=== PATIENT | female | born 1965 | race Caucasian/White ===

== ENCOUNTER → 2021-10-20 | Day surgery (SDC) | payer BC ==
[~2021-10-20] MED LIST: AMLODIPINE BESYL5 MG PO; CELECOXIB100 MG PO; CYMBALTA20 MG PO; DUPIXENT300 MG/2 M IN; FENTANYL CITRATE/PF 100MCG/2 ML INJ ONE; FOLIC ACID PO; GABAPENTIN300 MG PO; MIDAZOLAM HCL 2 MG/2 ML VIAL ONE; ORENCIA125 MG/1 M INJ; PREDNISONE10 MG PO; PROPOFOL IV EMULSION 10 MG/ML 20 ML VIAL ONE; SULFASALAZINE500 MG PO; TIZANIDINE HCL4 MG PO
[2021-10-20 14:15] VITALS: BP 134/90
== END | disposition home or self-care (01) ==
LOC: ENDO 11:41
PROVIDERS: ATTEND Internal Medicine Gastroenterology
DX: K20.90 Esophagitis, unspecified without bleeding (principal); K29.50 Unspecified chronic gastritis without bleeding; K25.9 Gastric ulcer, unspecified as acute or chronic, without hemorrhage or perforation; K44.9 Diaphragmatic hernia without obstruction or gangrene; K31.4 Gastric diverticulum; Z71.3 Dietary counseling and surveillance; I10 Essential (primary) hypertension; M06.9 Rheumatoid arthritis, unspecified; L40.9 Psoriasis, unspecified; Z01.810 Encounter for preprocedural cardiovascular examination; Z01.812 Encounter for preprocedural laboratory examination; Z20.822 Contact with and (suspected) exposure to COVID-19; Z79.899 Other long term (current) drug therapy; Z68.31 Body mass index [BMI] 31.0-31.9, adult
CPT/HCPCS: 43239; 43248; 93005; C9113; J2250; J2704; J3010; U0002; 43450

== ENCOUNTER → 2021-12-08 | Outpatient (CLI) | payer BC ==
[~2021-12-08] MED LIST changes: +AUGMENTIN 500-1 EACH PO; +BENZONATATE200 MG PO; +CELEBREX100 MG PO; +CICLOPIROX 8%34.6 ML TOP; +CLOBETASOL 0.05% TOP; +CYCLOBENZAPRINE10 MG PO; +DIFLUCAN100 MG PO; +DULOXETINE HCL20 MG PO; +DUPIXENT300 MG/2 M IM; +ELIQUIS5 MG PO; -FENTANYL CITRATE/PF 100MCG/2 ML INJ ONE; +FOLIC ACID0.4 MG PO; +IPRAT-ALBUT 0.5-3 ML IH; +LOPRESSOR25 MG PO; -MIDAZOLAM HCL 2 MG/2 ML VIAL ONE; +NEURONTIN300 MG PO; +ONDANSETRON ODT4 MG PO; +ORENCIA125 MG/1 M IM; +PROAIR HFA INH8.5 GM INH; -PROPOFOL IV EMULSION 10 MG/ML 20 ML VIAL ONE; +TACROLIMUS 0.1% TOP; +TRIAMCINOLONE A15 G4 TP; +WELLBUTRIN SR100 MG PO
== END ==
LOC: RAD 15:19
PROVIDERS: ATTEND Internal Medicine Cardiovascular Disease
DX: R60.9 Edema, unspecified (principal)
CPT/HCPCS: 93970

== ENCOUNTER 2022-03-04 16:01 | Inpatient (IN) | payer BC ==
[~2022-03-04] VITALS: Ht 152.4 cm; Wt 89.0 kg
[2022-03-04] MEDS ORDERED: SODIUM CHLORIDE 0.9% 1000ML 1,000 ML IV ONE (17:00)
[2022-03-04 17:19] LABS: BASOPHILS % 0.2 % (0.0-1.0); HEMATOCRIT 37.9 % (34.2-44.1); LYMPHOCYTES # (AUTO) 2.1 (1.0-3.2); LYMPHOCYTES % 13.8 % (18.0-39.1); MEAN CORPUSCULAR HEMOGLOBIN 30.3 pg (28-32); MEAN CORPUSCULAR HGB CONC 31.7 g/dL (31-35); MEAN CORPUSCULAR VOLUME 95.7 fL (81-99); MONOCYTES # (AUTO) 0.6 (0.2-0.8); MONOCYTES % 4.2 % (4.4-11.3); NEUTROPHILS # (AUTO) 12.4 (2.1-6.9); PLATELET COUNT 463 x10e3/uL (140-360); RED BLOOD COUNT 3.96 x10e6/uL (3.6-5.1); RED CELL DISTRIBUTION WIDTH 17.1 % (11.7-14.4)
[2022-03-04 17:38] LABS: ALBUMIN/GLOBULIN RATIO 0.8 (0.8-2.0); CALCIUM 8.7 mg/dL (8.4-10.2); CREATININE, SERUM 1.01 mg/dL (0.57-1.11)
[2022-03-04] MEDS: METHYLPREDNISOLONE SOD SUCC 125 MG/2ML VIAL IV SCH (17:59)
[2022-03-04] MEDS: ALBUTEROL/IPRATROPIUM 3 ML NEB NEB SCH ×2 (18:15→22:50)
[2022-03-04] MEDS ORDERED: ONDANSETRON HCL INJ 2MG/ML 2ML 2 MG/ML VIAL IV PRN (19:00)
[2022-03-04] MEDS ORDERED: ALBUTEROL/IPRATROPIUM 3 ML NEB NEB SCH (19:00)
[2022-03-04] MEDS ORDERED: SODIUM CHLORIDE FLUSH 10 ML SYR INJ PRN (19:00)
[2022-03-04] MEDS ORDERED: HYDROCODONE/APAP 5MG-325MG TAB PO PRN (19:00)
[2022-03-05] MEDS: HYDROCODONE/APAP 10MG-325MG TAB PO PRN ×5 (00:33→21:45)
[2022-03-05] MEDS: ALBUTEROL/IPRATROPIUM 3 ML NEB NEB SCH ×6 (03:15→23:00)
[2022-03-05] MEDS: METHYLPREDNISOLONE SOD SUCC 125 MG/2ML VIAL IV SCH (06:09)
[2022-03-05] MEDS ORDERED: ACETAMINOPHEN 325 MG TAB PO PRN (08:15)
[2022-03-05] MEDS ORDERED: ONDANSETRON HCL INJ 2MG/ML 2ML 2 MG/ML VIAL IV PRN (08:15)
[2022-03-05] MEDS ORDERED: BENZONATATE 100 MG CAP PO PRN (08:15)
[2022-03-05] MEDS: SULFASALAZINE 500 MG TAB PO SCH ×2 (10:48→16:17)
[2022-03-05] MEDS: DULOXETINE HCL 20 MG DELAYED RELEASE PO SCH ×2 (10:48→16:18)
[2022-03-05] MEDS: APIXABAN 5 MG TABLET PO SCH ×2 (10:48→16:17)
[2022-03-05] MEDS: FAMOTIDINE 20 MG/2 ML VIAL IV SCH ×2 (10:48→16:17)
[2022-03-05] MEDS: METOPROLOL TARTRATE 25 MG TAB PO SCH ×2 (10:49→16:16)
[2022-03-05] MEDS: CYCLOBENZAPRINE HCL 10 MG TAB PO SCH ×2 (10:49→16:15)
[2022-03-05] MEDS: GABAPENTIN 300 MG CAP PO SCH ×3 (10:50→21:45)
[2022-03-05] MEDS: BUPROPION HCL 100 MG TAB PO SCH (10:51)
[2022-03-05 12:15] VITALS: BP 132/84
[2022-03-05 12:57] VITALS: BP 137/84
[2022-03-05 13:03] VITALS: BP 137/84
[2022-03-05] MEDS: METHYLPREDNISOLONE SOD SUCC 40 MG/ML VIAL 1ML IV SCH ×2 (14:25→21:45)
[2022-03-05 16:01] VITALS: BP 124/72
[2022-03-05 20:00] VITALS: BP 140/78
[2022-03-05] MEDS: IPRATROPIUM/ALBUTEROL SULFATE 4 GM INH INH SCH (20:20)
[2022-03-05 21:30] VITALS: BP 140/78
[2022-03-06] VITALS (8 sets, daily range): BP systolic 108–146; BP diastolic 61–88
[2022-03-06] MEDS: HYDROCODONE/APAP 10MG-325MG TAB PO PRN ×5 (02:36→22:00)
[2022-03-06] MEDS: ALBUTEROL/IPRATROPIUM 3 ML NEB NEB SCH ×6 (03:00→23:00)
[2022-03-06] MEDS: IPRATROPIUM/ALBUTEROL SULFATE 4 GM INH INH SCH ×6 (04:05→23:55)
[2022-03-06] MEDS: METHYLPREDNISOLONE SOD SUCC 40 MG/ML VIAL 1ML IV SCH ×3 (05:37→21:30)
[2022-03-06 06:46] LABS: ANION GAP 15.5 mmol/L (8-16); CALCIUM 7.7 mg/dL (8.4-10.2); CREATININE, SERUM 0.83 mg/dL (0.57-1.11); POTASSIUM 3.5 mmol/L (3.5-5.1)
[2022-03-06] MEDS: GABAPENTIN 300 MG CAP PO SCH ×3 (08:43→21:30)
[2022-03-06] MEDS: SULFASALAZINE 500 MG TAB PO SCH ×2 (08:43→17:10)
[2022-03-06] MEDS: METOPROLOL TARTRATE 25 MG TAB PO SCH ×2 (08:44→17:10)
[2022-03-06] MEDS: CYCLOBENZAPRINE HCL 10 MG TAB PO SCH ×2 (08:45→17:10)
[2022-03-06] MEDS: APIXABAN 5 MG TABLET PO SCH ×2 (08:45→17:11)
[2022-03-06] MEDS: DULOXETINE HCL 20 MG DELAYED RELEASE PO SCH ×2 (08:45→17:00)
[2022-03-06] MEDS: FAMOTIDINE 20 MG/2 ML VIAL IV SCH ×2 (08:46→17:00)
[2022-03-06] MEDS: BUPROPION HCL 100 MG TAB PO SCH (08:46)
[2022-03-07] VITALS (8 sets, daily range): BP systolic 130–148; BP diastolic 78–87
[2022-03-07] MEDS: ALBUTEROL/IPRATROPIUM 3 ML NEB NEB SCH ×6 (03:00→23:50)
[2022-03-07] MEDS: IPRATROPIUM/ALBUTEROL SULFATE 4 GM INH INH SCH ×6 (03:35→23:50)
[2022-03-07] MEDS: METHYLPREDNISOLONE SOD SUCC 40 MG/ML VIAL 1ML IV SCH ×3 (05:22→21:36)
[2022-03-07] MEDS: HYDROCODONE/APAP 10MG-325MG TAB PO PRN ×5 (05:30→23:00)
[2022-03-07] MEDS: CYCLOBENZAPRINE HCL 10 MG TAB PO SCH ×2 (08:54→16:24)
[2022-03-07] MEDS: SULFASALAZINE 500 MG TAB PO SCH ×2 (08:54→16:23)
[2022-03-07] MEDS: DULOXETINE HCL 20 MG DELAYED RELEASE PO SCH ×2 (08:54→16:25)
[2022-03-07] MEDS: GABAPENTIN 300 MG CAP PO SCH ×3 (08:55→21:36)
[2022-03-07] MEDS: APIXABAN 5 MG TABLET PO SCH ×2 (08:55→16:24)
[2022-03-07] MEDS: METOPROLOL TARTRATE 25 MG TAB PO SCH ×2 (08:55→16:24)
[2022-03-07] MEDS: BUPROPION HCL 100 MG TAB PO SCH (09:00)
[2022-03-07] MEDS: FAMOTIDINE 20 MG/2 ML VIAL IV SCH ×2 (09:00→16:24)
[2022-03-07] MEDS: NYSTATIN SUSPENSION 5 ML UDC PO SCH ×2 (16:23→21:36)
[2022-03-08] VITALS (8 sets, daily range): BP systolic 144–164; BP diastolic 84–96
[2022-03-08] MEDS: IPRATROPIUM/ALBUTEROL SULFATE 4 GM INH INH SCH ×6 (00:25→19:55)
[2022-03-08] MEDS: ALBUTEROL/IPRATROPIUM 3 ML NEB NEB SCH ×6 (03:00→23:00)
[2022-03-08] MEDS: HYDROCODONE/APAP 10MG-325MG TAB PO PRN ×4 (04:30→21:30)
[2022-03-08] MEDS: NYSTATIN SUSPENSION 5 ML UDC PO SCH ×3 (05:56→21:10)
[2022-03-08] MEDS: METHYLPREDNISOLONE SOD SUCC 40 MG/ML VIAL 1ML IV SCH (05:56)
[2022-03-08 06:55] LABS: BASOPHILS % 0.2 % (0.0-1.0); HEMATOCRIT 35.4 % (34.2-44.1); HEMOGLOBIN 10.9 g/dL (12.0-16.0); LYMPHOCYTES # (AUTO) 1.3 (1.0-3.2); LYMPHOCYTES % 11.3 % (18.0-39.1); MEAN CORPUSCULAR HEMOGLOBIN 30.3 pg (28-32); MEAN CORPUSCULAR HGB CONC 30.8 g/dL (31-35); MEAN CORPUSCULAR VOLUME 98.3 fL (81-99); MONOCYTES # (AUTO) 0.4 (0.2-0.8); MONOCYTES % 3.4 % (4.4-11.3); NEUTROPHILS # (AUTO) 9.6 (2.1-6.9); NEUTROPHILS % 83.5 % (38.7-80.0); PLATELET COUNT 307 x10e3/uL (140-360)
[2022-03-08 07:12] LABS: CALCIUM 8.6 mg/dL (8.4-10.2); CREATININE, SERUM 0.86 mg/dL (0.57-1.11)
[2022-03-08] MEDS: GABAPENTIN 300 MG CAP PO SCH ×3 (08:51→21:10)
[2022-03-08] MEDS: DULOXETINE HCL 20 MG DELAYED RELEASE PO SCH ×2 (08:51→16:59)
[2022-03-08] MEDS: SULFASALAZINE 500 MG TAB PO SCH ×2 (08:51→16:59)
[2022-03-08] MEDS: METOPROLOL TARTRATE 25 MG TAB PO SCH ×2 (08:52→17:00)
[2022-03-08] MEDS: BUPROPION HCL 100 MG TAB PO SCH (08:52)
[2022-03-08] MEDS: CYCLOBENZAPRINE HCL 10 MG TAB PO SCH ×2 (08:52→16:59)
[2022-03-08] MEDS: APIXABAN 5 MG TABLET PO SCH ×2 (08:52→16:59)
[2022-03-08] MEDS: FAMOTIDINE 20 MG/2 ML VIAL IV SCH ×2 (08:53→17:00)
[2022-03-08] MEDS ORDERED: GUAIFENESIN/CODEINE 5 ML LIQD PO PRN (09:15)
[2022-03-08] MEDS ORDERED: SUMATRIPTAN SUCCINATE 25 MG TAB PO ONE (10:00)
[2022-03-08] MEDS ORDERED: FLUCONAZOLE 100 MG TAB PO ONE (10:00)
[2022-03-08] MEDS: SUMATRIPTAN SUCCINATE 25 MG TAB PO PRN ×2 (10:13→23:29)
[2022-03-08] MEDS: BENZONATATE 100 MG CAP PO SCH ×2 (10:33→17:00)
[2022-03-08] MEDS: DEXAMETHASONE 4 MG TAB PO SCH ×2 (10:33→17:03)
[2022-03-09] VITALS: BP 149/90
[2022-03-09] MEDS: BENZONATATE 100 MG CAP PO SCH ×2 (01:08→09:19)
[2022-03-09] MEDS: ALBUTEROL/IPRATROPIUM 3 ML NEB NEB SCH ×2 (03:00→07:00)
[2022-03-09 04:00] VITALS: BP 144/84
[2022-03-09] MEDS: IPRATROPIUM/ALBUTEROL SULFATE 4 GM INH INH SCH ×2 (04:15→07:25)
[2022-03-09] MEDS: HYDROCODONE/APAP 10MG-325MG TAB PO PRN (06:15)
[2022-03-09] MEDS: NYSTATIN SUSPENSION 5 ML UDC PO SCH (06:15)
[2022-03-09 08:21] VITALS: BP 136/91
[2022-03-09] MEDS ORDERED: FLUCONAZOLE 100 MG TAB PO SCH (09:00)
[2022-03-09] MEDS: GABAPENTIN 300 MG CAP PO SCH (09:19)
[2022-03-09] MEDS: DULOXETINE HCL 20 MG DELAYED RELEASE PO SCH (09:19)
[2022-03-09] MEDS: SULFASALAZINE 500 MG TAB PO SCH (09:20)
[2022-03-09] MEDS: METOPROLOL TARTRATE 25 MG TAB PO SCH (09:20)
[2022-03-09] MEDS: CYCLOBENZAPRINE HCL 10 MG TAB PO SCH (09:20)
[2022-03-09] MEDS: APIXABAN 5 MG TABLET PO SCH (09:21)
[2022-03-09] MEDS: BUPROPION HCL 100 MG TAB PO SCH (09:21)
[2022-03-09] MEDS: DEXAMETHASONE 4 MG TAB PO SCH (09:21)
[2022-03-09] MEDS: FAMOTIDINE 20 MG/2 ML VIAL IV SCH (09:21)
[2022-03-09 09:34] VITALS: BP 136/91
[2022-03-09] MEDS: SUMATRIPTAN SUCCINATE 25 MG TAB PO PRN (10:42)
== END 2022-03-09 11:30 | disposition home or self-care (01) | DRG 177 ==
LOC: ER 17:00 → ERHOLD 18:52 → MED/SURG2 03-05 12:32
PROVIDERS: ADMIT Internal Medicine; ATTEND Internal Medicine
PROC: 8E0ZXY6 Isolation (ICD-10-PCS; principal; 2022-03-04)
DX: U07.1 COVID-19 (principal); J18.9 Pneumonia, unspecified organism; D84.821 Immunodeficiency due to drugs; J06.9 Acute upper respiratory infection, unspecified; B37.9 Candidiasis, unspecified; G43.909 Migraine, unspecified, not intractable, without status migrainosus; M06.9 Rheumatoid arthritis, unspecified; M79.7 Fibromyalgia; E66.9 Obesity, unspecified; Z68.38 Body mass index [BMI] 38.0-38.9, adult; J20.9 Acute bronchitis, unspecified; R09.02 Hypoxemia
CPT/HCPCS: 0223U; 36415; 71045; 80048; 80053; 82552; 84484; 85025; 93005; 94640; 94664; 94799; 99285; J0456; J0696; J2405; J2920; J2930; J7030; J7050

== ENCOUNTER 2022-03-16 10:37 | Inpatient (IN) | payer BC ==
[2022-03-16] VITALS (17 sets, daily range): BP systolic 103–149; BP diastolic 62–102
[~2022-03-16] VITALS: Ht 167.6 cm; Wt 88.7 kg
[2022-03-16] MEDS ORDERED: ETOMIDATE 2 MG/ML 10 ML INJ IV ONE (12:43)
[2022-03-16] MEDS ORDERED: SUCCINYLCHOLINE CHLORIDE 20 MG/ML 10ML VIAL ONE (12:43)
[2022-03-16] MEDS ORDERED: ALBUTEROL/IPRATROPIUM 3 ML NEB NEB PRN (13:45)
[2022-03-16] MEDS ORDERED: POTASSIUM CHLO20 ME1 PO (13:48)
[2022-03-16] MEDS ORDERED: HYDROCODON-ACE1 EA11 PO (13:48)
[2022-03-16] MEDS ORDERED: SUCRALFATE1 GM PO (13:48)
[2022-03-16] MEDS ORDERED: PROTONIX20 MG PO (13:48)
[2022-03-16] MEDS ORDERED: [UNRECOGNIZED DRUG - OTHER] PO (13:48)
[2022-03-16] MEDS: HYDROCODONE/APAP 5MG-325MG TAB PO PRN (14:31)
[2022-03-16 14:52] LABS: ABG HCO3 33 mmol/L (22-26); ABG PCO2 41 mmHg (35-45); ABG PH 7.52 (7.35-7.45); ABG PO2 63 mmHg (80-105); ABG TCO2 34
[2022-03-16] MEDS: Morphine 4mg INJECTION 4 MG/ML INJ IV PRN ×2 (16:50→22:21)
[2022-03-16] MEDS: SUCRALFATE 1 GM TAB PO SCH ×2 (16:51→21:08)
[2022-03-16] MEDS ORDERED: DULOXETINE HCL 20 MG DELAYED RELEASE PO SCH (17:00)
[2022-03-16 17:35] LABS: ANION GAP 17.7 mmol/L (8-16); CREATININE, SERUM 0.84 mg/dL (0.57-1.11); POTASSIUM 3.7 mmol/L (3.5-5.1)
[2022-03-16] MEDS: APIXABAN 5 MG TABLET PO SCH (18:16)
[2022-03-16] MEDS: CELECOXIB 200 MG CAP PO SCH (18:16)
[2022-03-16] MEDS: GABAPENTIN 300 MG CAP PO SCH (21:08)
[2022-03-16] MEDS: METHYLPREDNISOLONE SOD SUCC 40 MG/ML VIAL 1ML IV SCH (21:08)
[2022-03-16] MEDS: [UNRECOGNIZED DRUG - OTHER] PO SCH (21:09)
[2022-03-17] VITALS (17 sets, daily range): BP systolic 111–136; BP diastolic 69–93
[2022-03-17] MEDS: Morphine 4mg INJECTION 4 MG/ML INJ IV PRN ×3 (05:05→21:29)
[2022-03-17 07:23] LABS: BASOPHILS % 0.1 % (0.0-1.0); HEMOGLOBIN 10.2 g/dL (12.0-16.0); LYMPHOCYTES # (AUTO) 1.7 (1.0-3.2); LYMPHOCYTES % 9.7 % (18.0-39.1); MEAN CORPUSCULAR HEMOGLOBIN 29.7 pg (28-32); MEAN CORPUSCULAR HGB CONC 30.9 g/dL (31-35); MEAN CORPUSCULAR VOLUME 96.2 fL (81-99); MONOCYTES # (AUTO) 0.4 (0.2-0.8); MONOCYTES % 2.1 % (4.4-11.3); NEUTROPHILS # (AUTO) 14.8 (2.1-6.9); PLATELET COUNT 527 x10e3/uL (140-360); RED BLOOD COUNT 3.43 x10e6/uL (3.6-5.1); RED CELL DISTRIBUTION WIDTH 17.7 % (11.7-14.4)
[2022-03-17 07:41] LABS: ALBUMIN 2.2 g/dL (3.5-5.0); ALBUMIN/GLOBULIN RATIO 0.5 (0.8-2.0); ANION GAP 17.9 mmol/L (8-16); CALCIUM 8.9 mg/dL (8.4-10.2); CREATININE, SERUM 0.69 mg/dL (0.57-1.11); POTASSIUM 3.9 mmol/L (3.5-5.1)
[2022-03-17] MEDS: PANTOPRAZOLE SOD 40 MG TABEC PO SCH (07:41)
[2022-03-17] MEDS: SUCRALFATE 1 GM TAB PO SCH ×4 (07:42→21:17)
[2022-03-17] MEDS: BENZONATATE 100 MG CAP PO PRN ×2 (07:42→21:13)
[2022-03-17] MEDS: CELECOXIB 200 MG CAP PO SCH ×2 (07:42→16:07)
[2022-03-17] MEDS: ALBUTEROL SULFATE HFA 8GM INHALATION AEROSOL INH PRN ×4 (07:55→19:30)
[2022-03-17] MEDS: METHYLPREDNISOLONE SOD SUCC 40 MG/ML VIAL 1ML IV SCH ×2 (09:00→21:13)
[2022-03-17] MEDS: DULOXETINE HCL 20 MG DELAYED RELEASE PO SCH (09:02)
[2022-03-17] MEDS: APIXABAN 5 MG TABLET PO SCH ×2 (09:02→16:08)
[2022-03-17] MEDS: FOLIC ACID 1 MG TAB PO SCH (09:02)
[2022-03-17] MEDS: GABAPENTIN 300 MG CAP PO SCH ×3 (09:02→21:13)
[2022-03-17] MEDS: POTASSIUM CHLORIDE 10MEQ EA PO SCH (09:02)
[2022-03-17] MEDS: BUPROPION HCL 100 MG PO SCH (09:03)
[2022-03-17] MEDS: [UNRECOGNIZED DRUG - OTHER] PO SCH ×3 (09:03→21:15)
[2022-03-17] MEDS: CYCLOBENZAPRINE HCL 10 MG TAB PO PRN (21:16)
[2022-03-18] VITALS (25 sets, daily range): BP systolic 118–143; BP diastolic 72–105
[2022-03-18] MEDS: BENZONATATE 100 MG CAP PO PRN ×2 (03:45→20:01)
[2022-03-18] MEDS: HYDROCODONE/APAP 5MG-325MG TAB PO PRN (03:45)
[2022-03-18 06:40] LABS: BASOPHILS % 0.1 % (0.0-1.0); HEMATOCRIT 30.4 % (34.2-44.1); HEMOGLOBIN 9.4 g/dL (12.0-16.0); LYMPHOCYTES # (AUTO) 1.2 (1.0-3.2); LYMPHOCYTES % 8.3 % (18.0-39.1); MEAN CORPUSCULAR HGB CONC 30.9 g/dL (31-35); MEAN CORPUSCULAR VOLUME 97.1 fL (81-99); MONOCYTES # (AUTO) 0.2 (0.2-0.8); MONOCYTES % 1.6 % (4.4-11.3); NEUTROPHILS # (AUTO) 13.4 (2.1-6.9); NEUTROPHILS % 88.9 % (38.7-80.0); PLATELET COUNT 519 x10e3/uL (140-360); RED BLOOD COUNT 3.13 x10e6/uL (3.6-5.1); RED CELL DISTRIBUTION WIDTH 17.6 % (11.7-14.4)
[2022-03-18 07:02] LABS: ALBUMIN/GLOBULIN RATIO 0.6 (0.8-2.0); CALCIUM 8.9 mg/dL (8.4-10.2); CREATININE, SERUM 0.59 mg/dL (0.57-1.11)
[2022-03-18] MEDS: DULOXETINE HCL 20 MG DELAYED RELEASE PO SCH (08:23)
[2022-03-18] MEDS: PANTOPRAZOLE SOD 40 MG TABEC PO SCH (08:23)
[2022-03-18] MEDS: METOPROLOL SUCCINATE 25 MG TAB XL PO SCH (08:24)
[2022-03-18] MEDS: METHYLPREDNISOLONE SOD SUCC 40 MG/ML VIAL 1ML IV SCH ×2 (08:24→20:01)
[2022-03-18] MEDS: GABAPENTIN 300 MG CAP PO SCH ×3 (08:25→20:01)
[2022-03-18] MEDS: CELECOXIB 200 MG CAP PO SCH ×2 (08:25→16:39)
[2022-03-18] MEDS: APIXABAN 5 MG TABLET PO SCH ×2 (08:25→16:40)
[2022-03-18] MEDS: FOLIC ACID 1 MG TAB PO SCH (08:25)
[2022-03-18] MEDS: SUCRALFATE 1 GM TAB PO SCH ×4 (08:25→20:01)
[2022-03-18] MEDS: Morphine 4mg INJECTION 4 MG/ML INJ IV PRN ×3 (08:27→19:57)
[2022-03-18] MEDS: POTASSIUM CHLORIDE 10MEQ EA PO SCH (08:27)
[2022-03-18] MEDS: [UNRECOGNIZED DRUG - OTHER] PO SCH ×3 (08:28→20:01)
[2022-03-18] MEDS: BUPROPION HCL 100 MG PO SCH (08:28)
[2022-03-18] MEDS ORDERED: BUPROPION HCL 100 MG TAB PO SCH (09:00)
[2022-03-18] MEDS ORDERED: BARICITINIB 2 MG TABLET PO SCH (14:00)
[2022-03-18] MEDS: ALBUTEROL SULFATE HFA 8GM INHALATION AEROSOL INH PRN ×2 (16:15→19:29)
[2022-03-18] MEDS: CYCLOBENZAPRINE HCL 10 MG TAB PO PRN (19:58)
[2022-03-18] MEDS ORDERED: ALTEPLASE RECOMBINANT 2 MG/2 ML VIAL IV PRN (22:00)
[2022-03-19] VITALS (26 sets, daily range): BP systolic 94–163; BP diastolic 71–106
[2022-03-19] MEDS: Morphine 4mg INJECTION 4 MG/ML INJ IV PRN ×2 (00:44→23:04)
[2022-03-19 06:57] LABS: ANION GAP 12.5 mmol/L (8-16); CALCIUM 9.2 mg/dL (8.4-10.2); CREATININE, SERUM 0.69 mg/dL (0.57-1.11); POTASSIUM 4.5 mmol/L (3.5-5.1)
[2022-03-19] MEDS ORDERED: SODIUM CHLORIDE 0.45% 1,000 ML IV ONE (08:15)
[2022-03-19 08:41] LABS: BASOPHILS % 0.1 % (0.0-1.0); HEMATOCRIT 30.2 % (34.2-44.1); HEMOGLOBIN 9.2 g/dL (12.0-16.0); LYMPHOCYTES # (AUTO) 2.1 (1.0-3.2); LYMPHOCYTES % 14.2 % (18.0-39.1); MEAN CORPUSCULAR HGB CONC 30.5 g/dL (31-35); MEAN CORPUSCULAR VOLUME 98.4 fL (81-99); MONOCYTES # (AUTO) 0.3 (0.2-0.8); MONOCYTES % 2.2 % (4.4-11.3); NEUTROPHILS # (AUTO) 12.2 (2.1-6.9); NEUTROPHILS % 82.3 % (38.7-80.0); PLATELET COUNT 527 x10e3/uL (140-360); RED BLOOD COUNT 3.07 x10e6/uL (3.6-5.1); RED CELL DISTRIBUTION WIDTH 17.7 % (11.7-14.4)
[2022-03-19] MEDS: METHYLPREDNISOLONE SOD SUCC 40 MG/ML VIAL 1ML IV SCH ×3 (09:05→21:21)
[2022-03-19] MEDS: APIXABAN 5 MG TABLET PO SCH ×2 (09:05→17:58)
[2022-03-19] MEDS: BUPROPION HCL 100 MG PO SCH (09:06)
[2022-03-19] MEDS: METOPROLOL SUCCINATE 25 MG TAB XL PO SCH (09:10)
[2022-03-19] MEDS: DULOXETINE HCL 20 MG DELAYED RELEASE PO SCH (09:11)
[2022-03-19] MEDS: CELECOXIB 200 MG CAP PO SCH ×2 (09:25→17:58)
[2022-03-19] MEDS: [UNRECOGNIZED DRUG - OTHER] PO SCH ×3 (09:25→21:21)
[2022-03-19] MEDS ORDERED: DEXAMETHASONE 4 MG TAB PO SCH (12:00)
[2022-03-19] MEDS: ALBUTEROL SULFATE HFA 8GM INHALATION AEROSOL INH PRN (13:15)
[2022-03-19] MEDS: HYDROCODONE/APAP 7.5MG-325MG 1 EA TAB PO PRN ×2 (14:00→20:00)
[2022-03-20] VITALS (25 sets, daily range): BP systolic 110–166; BP diastolic 72–107
[2022-03-20] MEDS: BENZONATATE 100 MG CAP PO PRN ×2 (02:15→23:46)
[2022-03-20] MEDS: DEXMEDETOMIDINE 400MCG/NS100ML 100 ML IV PRN (03:29)
[2022-03-20] MEDS: HYDROCODONE/APAP 7.5MG-325MG 1 EA TAB PO PRN ×2 (05:15→23:46)
[2022-03-20 06:14] LABS: BASOPHILS % 0.1 % (0.0-1.0); EOSINOPHILS % 0.1 % (0.0-6.0); HEMATOCRIT 29.3 % (34.2-44.1); HEMOGLOBIN 8.9 g/dL (12.0-16.0); LYMPHOCYTES # (AUTO) 1.2 (1.0-3.2); LYMPHOCYTES % 8.3 % (18.0-39.1); MEAN CORPUSCULAR HEMOGLOBIN 29.4 pg (28-32); MEAN CORPUSCULAR HGB CONC 30.4 g/dL (31-35); MEAN CORPUSCULAR VOLUME 96.7 fL (81-99); MONOCYTES # (AUTO) 0.3 (0.2-0.8); MONOCYTES % 1.9 % (4.4-11.3); NEUTROPHILS % 88.6 % (38.7-80.0); PLATELET COUNT 498 x10e3/uL (140-360); RED BLOOD COUNT 3.03 x10e6/uL (3.6-5.1); RED CELL DISTRIBUTION WIDTH 16.9 % (11.7-14.4)
[2022-03-20 06:58] LABS: ALBUMIN 1.8 g/dL (3.5-5.0); ALBUMIN/GLOBULIN RATIO 0.4 (0.8-2.0); ANION GAP 13.4 mmol/L (8-16); CALCIUM 8.8 mg/dL (8.4-10.2); CREATININE, SERUM 0.57 mg/dL (0.57-1.11); POTASSIUM 4.4 mmol/L (3.5-5.1)
[2022-03-20] MEDS: CELECOXIB 200 MG CAP PO SCH ×2 (08:04→09:09)
[2022-03-20] MEDS: Morphine 4mg INJECTION 4 MG/ML INJ IV PRN ×3 (08:19→20:46)
[2022-03-20] MEDS: METOPROLOL SUCCINATE 25 MG TAB XL PO SCH (09:11)
[2022-03-20] MEDS: METHYLPREDNISOLONE SOD SUCC 40 MG/ML VIAL 1ML IV SCH ×2 (09:11→20:46)
[2022-03-20] MEDS: APIXABAN 5 MG TABLET PO SCH ×2 (09:11→17:43)
[2022-03-20] MEDS ORDERED: GUAIFENESIN/CODEINE 5 ML LIQD PO PRN (09:15)
[2022-03-20] MEDS: DULOXETINE HCL 20 MG DELAYED RELEASE PO SCH (09:16)
[2022-03-20] MEDS: [UNRECOGNIZED DRUG - OTHER] PO SCH ×3 (09:20→20:54)
[2022-03-20] MEDS: BUPROPION HCL 100 MG PO SCH (09:20)
[2022-03-20] MEDS: GUAIFENESIN/CODEINE 5 ML LIQD PO PRN ×2 (09:50→20:59)
[2022-03-20] MEDS: ALBUTEROL SULFATE HFA 8GM INHALATION AEROSOL INH PRN (11:05)
[2022-03-20] MEDS: OLMESARTAN 20 MG TAB PO SCH (14:44)
[2022-03-21] VITALS (27 sets, daily range): BP systolic 108–161; BP diastolic 63–103
[2022-03-21] MEDS: Morphine 4mg INJECTION 4 MG/ML INJ IV PRN ×3 (02:06→20:14)
[2022-03-21] MEDS: GUAIFENESIN/CODEINE 5 ML LIQD PO PRN ×3 (02:06→15:32)
[2022-03-21] MEDS: DEXMEDETOMIDINE 400MCG/NS100ML 100 ML IV PRN (03:30)
[2022-03-21 06:46] LABS: BASOPHILS % 0.1 % (0.0-1.0); HEMATOCRIT 30.9 % (34.2-44.1); HEMOGLOBIN 9.4 g/dL (12.0-16.0); LYMPHOCYTES # (AUTO) 0.9 (1.0-3.2); LYMPHOCYTES % 4.8 % (18.0-39.1); MEAN CORPUSCULAR HEMOGLOBIN 29.5 pg (28-32); MEAN CORPUSCULAR HGB CONC 30.4 g/dL (31-35); MEAN CORPUSCULAR VOLUME 96.9 fL (81-99); MONOCYTES # (AUTO) 0.3 (0.2-0.8); MONOCYTES % 1.7 % (4.4-11.3); NEUTROPHILS # (AUTO) 16.9 (2.1-6.9); NEUTROPHILS % 92.4 % (38.7-80.0); PLATELET COUNT 497 x10e3/uL (140-360); RED BLOOD COUNT 3.19 x10e6/uL (3.6-5.1); RED CELL DISTRIBUTION WIDTH 16.6 % (11.7-14.4)
[2022-03-21 07:22] LABS: ALBUMIN 1.9 g/dL (3.5-5.0); ALBUMIN/GLOBULIN RATIO 0.4 (0.8-2.0); ANION GAP 13.3 mmol/L (8-16); CALCIUM 9.3 mg/dL (8.4-10.2); CREATININE, SERUM 0.54 mg/dL (0.57-1.11); POTASSIUM 4.3 mmol/L (3.5-5.1)
[2022-03-21 07:55] LABS: LYMPHOCYTES % (MANUAL) 3 % (19-48); NEUTROPHILS % (MANUAL) 97 % (40-74); NUCLEATED RED BLOOD CELLS 1
[2022-03-21 07:57] LABS: POIKILOCYTOSIS SLIGHT
[2022-03-21 07:58] LABS: ANISOCYTOSIS SLIG; POLYCHROMASIA FEW; TARGET CELLS FEW
[2022-03-21 07:59] LABS: PLATELET ESTIMATE ADEQUATE; PLATELET MORPHOLOGY COMMENT FEW LARGE; SMUDGE CELLS FEW
[2022-03-21] MEDS: CELECOXIB 200 MG CAP PO SCH ×2 (08:07→17:09)
[2022-03-21] MEDS: METHYLPREDNISOLONE SOD SUCC 40 MG/ML VIAL 1ML IV SCH ×2 (08:57→21:12)
[2022-03-21] MEDS: OLMESARTAN 20 MG TAB PO SCH (08:58)
[2022-03-21] MEDS: APIXABAN 5 MG TABLET PO SCH ×2 (08:58→17:09)
[2022-03-21] MEDS: DULOXETINE HCL 20 MG DELAYED RELEASE PO SCH (08:58)
[2022-03-21] MEDS ORDERED: HYDROCHLOROTHIAZIDE 25 MG TAB PO SCH (09:00)
[2022-03-21] MEDS: BUPROPION HCL 100 MG PO SCH (09:01)
[2022-03-21] MEDS: [UNRECOGNIZED DRUG - OTHER] PO SCH ×3 (09:01→21:13)
[2022-03-21] MEDS: METOPROLOL SUCCINATE 25 MG TAB XL PO SCH (09:02)
[2022-03-21] MEDS: HYDROCODONE/APAP 7.5MG-325MG 1 EA TAB PO PRN (10:51)
[2022-03-21] MEDS: Vancomycin IV 1 GM in SODIUM CHLORIDE 0.9% 250ML 250 ML IV SCH ×2 (10:51→22:00)
[2022-03-21] MEDS ORDERED: FUROSEMIDE INJ 10 MG/ML 4 ML VIAL IV ONE (13:00)
[2022-03-21] MEDS: AMIODARONE HCL 200 MG TAB PO SCH ×3 (13:13→21:13)
[2022-03-21] MEDS: BENZONATATE 100 MG CAP PO PRN ×2 (14:59→21:13)
[2022-03-22] VITALS (24 sets, daily range): BP systolic 102–145; BP diastolic 59–131
[2022-03-22] MEDS: GUAIFENESIN/CODEINE 5 ML LIQD PO PRN ×3 (00:36→20:43)
[2022-03-22 06:01] LABS: BASOPHILS % 0.2 % (0.0-1.0); HEMOGLOBIN 9.5 g/dL (12.0-16.0); LYMPHOCYTES # (AUTO) 0.9 (1.0-3.2); LYMPHOCYTES % 4.2 % (18.0-39.1); MEAN CORPUSCULAR HEMOGLOBIN 29.9 pg (28-32); MEAN CORPUSCULAR HGB CONC 31.7 g/dL (31-35); MEAN CORPUSCULAR VOLUME 94.3 fL (81-99); MONOCYTES # (AUTO) 0.4 (0.2-0.8); MONOCYTES % 1.6 % (4.4-11.3); NEUTROPHILS # (AUTO) 20.2 (2.1-6.9); NEUTROPHILS % 91.7 % (38.7-80.0); PLATELET COUNT 551 x10e3/uL (140-360); RED BLOOD COUNT 3.18 x10e6/uL (3.6-5.1); RED CELL DISTRIBUTION WIDTH 16.1 % (11.7-14.4)
[2022-03-22 06:46] LABS: ANION GAP 13.3 mmol/L (8-16); CALCIUM 9.3 mg/dL (8.4-10.2); CREATININE, SERUM 0.83 mg/dL (0.57-1.11); POTASSIUM 4.3 mmol/L (3.5-5.1)
[2022-03-22 08:20] LABS: EOSINOPHILS % (MANUAL) 1 % (0-7); LYMPHOCYTES % (MANUAL) 3 % (19-48); MONOCYTES % (MANUAL) 2 % (3.4-9.0); NEUTROPHILS % (MANUAL) 94 % (40-74); PLATELET ESTIMATE ADEQUATE; PLATELET MORPHOLOGY COMMENT NORMAL; RBC MORPHOLOGY COMMENT NORMAL
[2022-03-22] MEDS: Vancomycin IV 1 GM in SODIUM CHLORIDE 0.9% 250ML 250 ML IV SCH ×2 (08:41→22:12)
[2022-03-22] MEDS: CELECOXIB 200 MG CAP PO SCH ×2 (08:41→17:12)
[2022-03-22] MEDS: DULOXETINE HCL 20 MG DELAYED RELEASE PO SCH (08:41)
[2022-03-22] MEDS: METHYLPREDNISOLONE SOD SUCC 40 MG/ML VIAL 1ML IV SCH ×2 (08:41→21:33)
[2022-03-22] MEDS: OLMESARTAN 20 MG TAB PO SCH (08:42)
[2022-03-22] MEDS: METOPROLOL SUCCINATE 25 MG TAB XL PO SCH (08:44)
[2022-03-22] MEDS: AMIODARONE HCL 200 MG TAB PO SCH ×2 (08:44→17:12)
[2022-03-22] MEDS: [UNRECOGNIZED DRUG - OTHER] PO SCH ×3 (08:45→21:34)
[2022-03-22] MEDS: BUPROPION HCL 100 MG PO SCH (08:45)
[2022-03-22] MEDS: APIXABAN 5 MG TABLET PO SCH ×2 (08:45→17:12)
[2022-03-22] MEDS ORDERED: SODIUM CHLORIDE 0.45% 1,000 ML IV ONE (10:00)
[2022-03-22] MEDS: DEXMEDETOMIDINE 400MCG/NS100ML 100 ML IV PRN (11:18)
[2022-03-22] MEDS: Morphine 4mg INJECTION 4 MG/ML INJ IV PRN ×3 (12:13→20:46)
[2022-03-22] MEDS: BENZONATATE 100 MG CAP PO PRN (12:13)
[2022-03-22] MEDS: ALBUTEROL SULFATE HFA 8GM INHALATION AEROSOL INH PRN (15:23)
[2022-03-23] VITALS (25 sets, daily range): BP systolic 113–161; BP diastolic 62–101
[2022-03-23] MEDS: Morphine 4mg INJECTION 4 MG/ML INJ IV PRN ×5 (00:14→22:33)
[2022-03-23] MEDS: GUAIFENESIN/CODEINE 5 ML LIQD PO PRN ×5 (01:26→23:57)
[2022-03-23] MEDS: DEXMEDETOMIDINE 400MCG/NS100ML 100 ML IV PRN ×2 (03:41→21:32)
[2022-03-23 06:50] LABS: BASOPHILS % 0.1 % (0.0-1.0); HEMATOCRIT 28.4 % (34.2-44.1); HEMOGLOBIN 8.6 g/dL (12.0-16.0); LYMPHOCYTES # (AUTO) 0.8 (1.0-3.2); LYMPHOCYTES % 3.6 % (18.0-39.1); MEAN CORPUSCULAR HEMOGLOBIN 29.6 pg (28-32); MEAN CORPUSCULAR HGB CONC 30.3 g/dL (31-35); MEAN CORPUSCULAR VOLUME 97.6 fL (81-99); MONOCYTES # (AUTO) 0.5 (0.2-0.8); MONOCYTES % 2.3 % (4.4-11.3); NEUTROPHILS # (AUTO) 19.5 (2.1-6.9); NEUTROPHILS % 92.1 % (38.7-80.0); PLATELET COUNT 528 x10e3/uL (140-360); RED BLOOD COUNT 2.91 x10e6/uL (3.6-5.1); RED CELL DISTRIBUTION WIDTH 16.2 % (11.7-14.4)
[2022-03-23 07:15] LABS: ALBUMIN 1.8 g/dL (3.5-5.0); ALBUMIN/GLOBULIN RATIO 0.4 (0.8-2.0); ANION GAP 11.3 mmol/L (8-16); CALCIUM 8.4 mg/dL (8.4-10.2); CREATININE, SERUM 0.69 mg/dL (0.57-1.11); POTASSIUM 4.3 mmol/L (3.5-5.1)
[2022-03-23] MEDS: CELECOXIB 200 MG CAP PO SCH ×2 (08:29→17:24)
[2022-03-23] MEDS ORDERED: FUROSEMIDE INJ 10 MG/ML 4 ML VIAL IV ONE (09:00)
[2022-03-23] MEDS: METOPROLOL SUCCINATE 25 MG TAB XL PO SCH (09:36)
[2022-03-23] MEDS: DULOXETINE HCL 20 MG DELAYED RELEASE PO SCH (09:37)
[2022-03-23] MEDS: APIXABAN 5 MG TABLET PO SCH ×2 (09:37→17:24)
[2022-03-23] MEDS: AMIODARONE HCL 200 MG TAB PO SCH ×2 (09:37→17:24)
[2022-03-23] MEDS: OLMESARTAN 20 MG TAB PO SCH (09:37)
[2022-03-23] MEDS: METHYLPREDNISOLONE SOD SUCC 40 MG/ML VIAL 1ML IV SCH (09:38)
[2022-03-23] MEDS: Vancomycin IV 1 GM in SODIUM CHLORIDE 0.9% 250ML 250 ML IV SCH ×2 (09:38→21:24)
[2022-03-23] MEDS: [UNRECOGNIZED DRUG - OTHER] PO SCH ×3 (09:39→21:32)
[2022-03-23] MEDS: BUPROPION HCL 100 MG PO SCH (09:39)
[2022-03-23] MEDS: ALBUTEROL SULFATE HFA 8GM INHALATION AEROSOL INH PRN (11:30)
[2022-03-23 12:33] LABS: LYMPHOCYTES % (MANUAL) 7 % (19-48); MONOCYTES % (MANUAL) 2 % (3.4-9.0); NEUTROPHILS % (MANUAL) 91 % (40-74); NUCLEATED RED BLOOD CELLS 1; PLATELET ESTIMATE ADEQUATE
[2022-03-23 12:34] LABS: ANISOCYTOSIS SLIGHT; HYPOCHROMASIA SLIGHT; PLATELET MORPHOLOGY COMMENT NORMAL; RBC MORPHOLOGY COMMENT NORMAL
[2022-03-23] MEDS: HYDROCODONE/APAP 7.5MG-325MG 1 EA TAB PO PRN (19:51)
[2022-03-24] VITALS (22 sets, daily range): BP systolic 98–148; BP diastolic 61–97
[2022-03-24] MEDS: Morphine 4mg INJECTION 4 MG/ML INJ IV PRN ×4 (06:27→23:13)
[2022-03-24] MEDS: GUAIFENESIN/CODEINE 5 ML LIQD PO PRN ×4 (06:27→22:53)
[2022-03-24 06:59] LABS: BASOPHILS # (AUTO) 0.1 (0.0-0.1); BASOPHILS % 0.2 % (0.0-1.0); EOSINOPHILS # (AUTO) 0.1 (0.0-0.4); EOSINOPHILS % 0.4 % (0.0-6.0); HEMATOCRIT 28.7 % (34.2-44.1); HEMOGLOBIN 8.7 g/dL (12.0-16.0); LYMPHOCYTES % 8.7 % (18.0-39.1); MEAN CORPUSCULAR HEMOGLOBIN 29.6 pg (28-32); MEAN CORPUSCULAR HGB CONC 30.3 g/dL (31-35); MEAN CORPUSCULAR VOLUME 97.6 fL (81-99); MONOCYTES # (AUTO) 0.5 (0.2-0.8); MONOCYTES % 2.1 % (4.4-11.3); NEUTROPHILS # (AUTO) 19.1 (2.1-6.9); PLATELET COUNT 503 x10e3/uL (140-360); RED BLOOD COUNT 2.94 x10e6/uL (3.6-5.1); RED CELL DISTRIBUTION WIDTH 16.2 % (11.7-14.4)
[2022-03-24 08:03] LABS: ALBUMIN 1.8 g/dL (3.5-5.0); ALBUMIN/GLOBULIN RATIO 0.4 (0.8-2.0); ANION GAP 10.9 mmol/L (8-16); CALCIUM 8.3 mg/dL (8.4-10.2); CREATININE, SERUM 0.65 mg/dL (0.57-1.11); POTASSIUM 3.9 mmol/L (3.5-5.1)
[2022-03-24] MEDS: ALBUTEROL SULFATE HFA 8GM INHALATION AEROSOL INH PRN (08:20)
[2022-03-24] MEDS: CELECOXIB 200 MG CAP PO SCH ×2 (08:58→17:35)
[2022-03-24] MEDS: DULOXETINE HCL 20 MG DELAYED RELEASE PO SCH (09:18)
[2022-03-24] MEDS: AMIODARONE HCL 200 MG TAB PO SCH ×2 (09:18→17:35)
[2022-03-24] MEDS: [UNRECOGNIZED DRUG - OTHER] PO SCH ×3 (09:22→21:45)
[2022-03-24] MEDS: BUPROPION HCL 100 MG PO SCH (09:23)
[2022-03-24] MEDS: DEXAMETHASONE SOD PHOS 10 MG/1 ML VIAL IV SCH (09:23)
[2022-03-24] MEDS: DEXMEDETOMIDINE 400MCG/NS100ML 100 ML IV PRN ×2 (09:26→19:47)
[2022-03-24] MEDS ORDERED: SODIUM CHLORIDE 0.45% 1,000 ML IV ONE (09:45)
[2022-03-24] MEDS: APIXAB 2.5 MG TABLET PO SCH ×2 (09:59→17:35)
[2022-03-24] MEDS: OLMESARTAN 20 MG TAB PO SCH (10:05)
[2022-03-24] MEDS: METOPROLOL SUCCINATE 25 MG TAB XL PO SCH (10:06)
[2022-03-24 10:14] LABS: INR 1.35; PARTIAL THROMBOPLASTIN TIME 25.2 seconds (23.8-35.5); PROTHROMBIN TIME 17.8 seconds (11.9-14.5)
[2022-03-24] MEDS: Vancomycin IV 1 GM in SODIUM CHLORIDE 0.9% 250ML 250 ML IV SCH ×2 (10:38→21:45)
[2022-03-24 11:37] LABS: ABG HCO3 29 mmol/L (22-26); ABG PCO2 44 mmHg (35-45); ABG PH 7.43 (7.35-7.45); ABG PO2 54 mmHg (80-105); ABG TCO2 30
[2022-03-25] VITALS (49 sets, daily range): BP systolic 58–155; BP diastolic 38–136
[2022-03-25] MEDS ORDERED: FENTANYL 2000MCG/NS 250 250 ML ONE ×2 (06:05→20:06)
[2022-03-25] MEDS: FENTANYL 2000MCG/NS 250 250 ML IV PRN ×3 (06:05→20:06)
[2022-03-25] MEDS ORDERED: PROPOFOL IV EMULSION 10MG/ML 100 ML ONE (06:07)
[2022-03-25] MEDS ORDERED: NOREPINEPHRINE 8 MG/D5W 250 ML 250 ML ONE (07:14)
[2022-03-25] MEDS ORDERED: SODIUM CHLORIDE 0.9% 1000ML 1,000 ML ONE (07:18)
[2022-03-25] MEDS ORDERED: MIDAZOLAM HCL 2 MG/2 ML VIAL IV STA (07:20)
[2022-03-25 07:29] LABS: BASOPHILS # (AUTO) 0.1 (0.0-0.1); BASOPHILS % 0.2 % (0.0-1.0); EOSINOPHILS # (AUTO) 0.1 (0.0-0.4); EOSINOPHILS % 0.3 % (0.0-6.0); HEMATOCRIT 28.9 % (34.2-44.1); HEMOGLOBIN 8.6 g/dL (12.0-16.0); LYMPHOCYTES # (AUTO) 1.2 (1.0-3.2); LYMPHOCYTES % 4.5 % (18.0-39.1); MEAN CORPUSCULAR HEMOGLOBIN 29.4 pg (28-32); MEAN CORPUSCULAR HGB CONC 29.8 g/dL (31-35); MEAN CORPUSCULAR VOLUME 98.6 fL (81-99); MONOCYTES # (AUTO) 0.3 (0.2-0.8); MONOCYTES % 1.1 % (4.4-11.3); NEUTROPHILS # (AUTO) 24.8 (2.1-6.9); NEUTROPHILS % 91.1 % (38.7-80.0); PLATELET COUNT 514 x10e3/uL (140-360); RED BLOOD COUNT 2.93 x10e6/uL (3.6-5.1); RED CELL DISTRIBUTION WIDTH 16.8 % (11.7-14.4)
[2022-03-25 07:48] LABS: ALBUMIN 1.7 g/dL (3.5-5.0); ALBUMIN/GLOBULIN RATIO 0.4 (0.8-2.0); ANION GAP 12.8 mmol/L (8-16); CALCIUM 9.1 mg/dL (8.4-10.2); CREATININE, SERUM 0.7 mg/dL (0.57-1.11); POTASSIUM 3.8 mmol/L (3.5-5.1)
[2022-03-25] MEDS: PROPOFOL IV EMULSION 10MG/ML 100 ML IV PRN ×5 (07:50→20:58)
[2022-03-25] MEDS: CELECOXIB 200 MG CAP PO SCH ×2 (08:00→17:00)
[2022-03-25] MEDS ORDERED: SODIUM CHLORIDE 0.45% 1,000 ML IV ONE ×2 (08:00→17:00)
[2022-03-25 08:26] LABS: BAND NEUTROPHILS % (MANUAL) 1 %; EOSINOPHILS % (MANUAL) 2 % (0-7); LYMPHOCYTES % (MANUAL) 3 % (19-48); MONOCYTES % (MANUAL) 1 % (3.4-9.0); NEUTROPHILS % (MANUAL) 93 % (40-74)
[2022-03-25 08:27] LABS: ANISOCYTOSIS MODERATE; HYPOCHROMASIA MODERATE; PLATELET ESTIMATE ADEQUATE; PLATELET MORPHOLOGY COMMENT NORMAL; POIKILOCYTOSIS SLIGHT; RBC MORPHOLOGY COMMENT ABNORMAL
[2022-03-25] MEDS ORDERED: MIDAZOLAM HCL 2 MG/2 ML VIAL IV ONE ×2 (08:30→16:45)
[2022-03-25] MEDS: [UNRECOGNIZED DRUG - OTHER] PO SCH ×3 (09:00→20:37)
[2022-03-25] MEDS: BUPROPION HCL 100 MG PO SCH (09:00)
[2022-03-25] MEDS: APIXAB 2.5 MG TABLET PO SCH ×2 (09:00→18:06)
[2022-03-25] MEDS: DULOXETINE HCL 20 MG DELAYED RELEASE PO SCH (09:00)
[2022-03-25] MEDS: METOPROLOL SUCCINATE 25 MG TAB XL PO SCH (09:00)
[2022-03-25] MEDS ORDERED: VECURONIUM BROMIDE FOR INJ 20 MG VIAL IV ONE (09:00)
[2022-03-25] MEDS: DEXAMETHASONE SOD PHOS 10 MG/1 ML VIAL IV SCH (10:23)
[2022-03-25 10:54] LABS: ABG PCO2 62 mmHg (35-45); ABG PH 7.29 (7.35-7.45)
[2022-03-25 10:55] LABS: ABG HCO3 30 mmol/L (22-26); ABG PO2 61 mmHg (80-105); ABG TCO2 32
[2022-03-25 10:58] LABS: ABG HCO3 29 mmol/L (22-26); ABG PCO2 60 mmHg (35-45); ABG PO2 67 mmHg (80-105); ABG TCO2 31
[2022-03-25 11:52] LABS: COLOR,URINE YELLOW (YELLOW)
[2022-03-25 11:53] LABS: CLARITY,URINE CLOUDY (CLEAR); KETONES,URINE NEGATIVE (NEGATIVE); LEUKOCYTE ESTERASE ,URINE NEGATIVE (NEGATIVE); NITRITE,URINE NEGATIVE (NEGATIVE); PROTEIN,URINE DIPSTICK 1+ (NEGATIVE); URINE UROBILINOGEN 0.2 mg/dL (0.2 - 1)
[2022-03-25] MEDS: Vancomycin IV 1 GM in SODIUM CHLORIDE 0.9% 250ML 250 ML IV SCH ×2 (11:55→21:03)
[2022-03-25 12:30] LABS: BACTERIA,URINE MANY /HPF
[2022-03-25 12:32] LABS: EPITHELIAL CELLS,URINE RARE /LPF; RBC,URINE >50 /HPF (0-5)
[2022-03-26] VITALS (84 sets, daily range): BP systolic 74–181; BP diastolic 52–113
[2022-03-26] MEDS: FENTANYL 2000MCG/NS 250 250 ML IV PRN ×3 (03:59→18:46)
[2022-03-26] MEDS: PROPOFOL IV EMULSION 10MG/ML 100 ML IV PRN ×4 (05:19→18:33)
[2022-03-26 06:34] LABS: BASOPHILS % 0.1 % (0.0-1.0); EOSINOPHILS % 0.2 % (0.0-6.0); HEMATOCRIT 24.4 % (34.2-44.1); HEMOGLOBIN 7.3 g/dL (12.0-16.0); LYMPHOCYTES % 5.3 % (18.0-39.1); MEAN CORPUSCULAR HEMOGLOBIN 29.6 pg (28-32); MEAN CORPUSCULAR HGB CONC 29.9 g/dL (31-35); MEAN CORPUSCULAR VOLUME 98.8 fL (81-99); MONOCYTES # (AUTO) 0.4 (0.2-0.8); MONOCYTES % 2.3 % (4.4-11.3); NEUTROPHILS # (AUTO) 16.1 (2.1-6.9); NEUTROPHILS % 89.8 % (38.7-80.0); PLATELET COUNT 490 x10e3/uL (140-360); RED BLOOD COUNT 2.47 x10e6/uL (3.6-5.1); RED CELL DISTRIBUTION WIDTH 16.7 % (11.7-14.4)
[2022-03-26 06:50] LABS: ALBUMIN 1.5 g/dL (3.5-5.0); ALBUMIN/GLOBULIN RATIO 0.4 (0.8-2.0); ANION GAP 11.9 mmol/L (8-16); CALCIUM 8.3 mg/dL (8.4-10.2); CREATININE, SERUM 0.55 mg/dL (0.57-1.11); POTASSIUM 3.9 mmol/L (3.5-5.1)
[2022-03-26 09:12] LABS: ABG PCO2 48 mmHg (35-45); ABG PH 7.36 (7.35-7.45); ABG PO2 62 mmHg (80-105)
[2022-03-26 09:13] LABS: ABG HCO3 27 mmol/L (22-26); ABG TCO2 28
[2022-03-26] MEDS: APIXAB 2.5 MG TABLET PO SCH ×2 (10:12→16:14)
[2022-03-26] MEDS: AMIODARONE HCL 200 MG TAB PO SCH (10:13)
[2022-03-26] MEDS: DEXAMETHASONE SOD PHOS 10 MG/1 ML VIAL IV SCH (10:14)
[2022-03-26] MEDS: Vancomycin IV 1 GM in SODIUM CHLORIDE 0.9% 250ML 250 ML IV SCH ×3 (10:15→21:24)
[2022-03-26] MEDS: METOPROLOL SUCCINATE 25 MG TAB XL PO SCH (10:25)
[2022-03-26] MEDS: BUPROPION HCL 100 MG PO SCH (10:32)
[2022-03-26] MEDS: [UNRECOGNIZED DRUG - OTHER] PO SCH ×3 (10:32→21:00)
[2022-03-26 11:19] LABS: FERRITIN 251.77 ng/mL (4.63-204.00)
[2022-03-26] MEDS: IRON SUCROSE 100 MG in SODIUM CHLORIDE 0.9% 100 ML IV SCH (11:40)
[2022-03-26] MEDS: NOREPINEPHRINE 8 MG/D5W 250 ML 250 ML IV PRN (21:25)
[2022-03-27] VITALS (96 sets, daily range): BP systolic 80–166; BP diastolic 48–86
[2022-03-27] MEDS: PROPOFOL IV EMULSION 10MG/ML 100 ML IV PRN ×4 (01:29→23:20)
[2022-03-27] MEDS: FENTANYL 2000MCG/NS 250 250 ML IV PRN ×3 (02:35→17:29)
[2022-03-27 06:41] LABS: BASOPHILS # (AUTO) 0.1 (0.0-0.1); BASOPHILS % 0.2 % (0.0-1.0); EOSINOPHILS # (AUTO) 0.2 (0.0-0.4); EOSINOPHILS % 0.6 % (0.0-6.0); HEMATOCRIT 27.9 % (34.2-44.1); HEMOGLOBIN 8.3 g/dL (12.0-16.0); LYMPHOCYTES # (AUTO) 1.4 (1.0-3.2); LYMPHOCYTES % 4.7 % (18.0-39.1); MEAN CORPUSCULAR HEMOGLOBIN 29.6 pg (28-32); MEAN CORPUSCULAR HGB CONC 29.7 g/dL (31-35); MEAN CORPUSCULAR VOLUME 99.6 fL (81-99); MONOCYTES # (AUTO) 0.5 (0.2-0.8); MONOCYTES % 1.6 % (4.4-11.3); NEUTROPHILS # (AUTO) 26.9 (2.1-6.9); NEUTROPHILS % 91.1 % (38.7-80.0); PLATELET COUNT 492 x10e3/uL (140-360); RED CELL DISTRIBUTION WIDTH 16.7 % (11.7-14.4)
[2022-03-27 07:02] LABS: ALBUMIN 1.5 g/dL (3.5-5.0); ALBUMIN/GLOBULIN RATIO 0.3 (0.8-2.0); ANION GAP 14.3 mmol/L (8-16); CALCIUM 9.1 mg/dL (8.4-10.2); POTASSIUM 3.3 mmol/L (3.5-5.1)
[2022-03-27 07:04] LABS: CREATININE, SERUM 1.34 mg/dL (0.57-1.11)
[2022-03-27] MEDS ORDERED: FUROSEMIDE INJ 10 MG/ML 4 ML VIAL IV ONE (08:30)
[2022-03-27] MEDS: METOPROLOL SUCCINATE 25 MG TAB XL PO SCH (09:00)
[2022-03-27 09:04] LABS: ABG HCO3 22 mmol/L (22-26); ABG PCO2 48 mmHg (35-45); ABG PH 7.27 (7.35-7.45); ABG PO2 57 mmHg (80-105); ABG TCO2 23
[2022-03-27] MEDS: DEXAMETHASONE SOD PHOS 10 MG/1 ML VIAL IV SCH (09:22)
[2022-03-27] MEDS: AMIODARONE HCL 200 MG TAB PO SCH (09:22)
[2022-03-27] MEDS: APIXAB 2.5 MG TABLET PO SCH ×2 (09:22→17:27)
[2022-03-27] MEDS: MEROPENEM 1 GM in SODIUM CHLORIDE 0.9% 100 ML IV SCH ×2 (09:23→21:40)
[2022-03-27] MEDS: ALBUMIN 25% 25GM 100ML 0.25 GM/ML BTL IV SCH ×3 (09:23→17:27)
[2022-03-27] MEDS: BUPROPION HCL 100 MG PO SCH (09:23)
[2022-03-27] MEDS: [UNRECOGNIZED DRUG - OTHER] PO SCH (09:23)
[2022-03-27] MEDS: NOREPINEPHRINE 8 MG/D5W 250 ML 250 ML IV PRN (10:13)
[2022-03-27] MEDS: IRON SUCROSE 100 MG in SODIUM CHLORIDE 0.9% 100 ML IV SCH (11:15)
[2022-03-27] MEDS: CYANOCOBALAMIN INJ 1,000 MCG/ML VIAL IM SCH (11:15)
[2022-03-27] MEDS: MAGNESIUM OXIDE 400 MG TAB NG SCH ×2 (11:15→17:27)
[2022-03-27 11:44] LABS: ABG HCO3 22 mmol/L (22-26); ABG PCO2 47 mmHg (35-45); ABG PH 7.28 (7.35-7.45); ABG PO2 63 mmHg (80-105); ABG TCO2 23
[2022-03-27] MEDS: ALBUTEROL/IPRATROPIUM 3 ML NEB NEB SCH ×2 (14:15→19:15)
[2022-03-27] MEDS ORDERED: POTASSIUM CHLORIDE 20 MEQ TAB CR PO ONE (14:30)
[2022-03-27] MEDS ORDERED: SODIUM CHLORIDE 0.9% 1000ML 1,000 ML IV ONE (14:45)
[2022-03-27] MEDS: ASCORBIC ACID 500 MG TAB NG SCH (17:27)
[2022-03-27] MEDS ORDERED: MAGNESIUM SULFATE 2GM/50ML 50 ML IV ONE (18:15)
[2022-03-28] VITALS (90 sets, daily range): BP systolic 83–136; BP diastolic 47–77
[2022-03-28] MEDS: FENTANYL 2000MCG/NS 250 250 ML IV PRN ×4 (00:18→23:52)
[2022-03-28] MEDS: NOREPINEPHRINE 8 MG/D5W 250 ML 250 ML IV PRN (01:34)
[2022-03-28] MEDS: ALBUTEROL/IPRATROPIUM 3 ML NEB NEB SCH ×4 (02:35→19:10)
[2022-03-28 06:37] LABS: BASOPHILS # (AUTO) 0.1 (0.0-0.1); BASOPHILS % 0.3 % (0.0-1.0); EOSINOPHILS % 0.1 % (0.0-6.0); LYMPHOCYTES # (AUTO) 0.7 (1.0-3.2); LYMPHOCYTES % 2.4 % (18.0-39.1); MEAN CORPUSCULAR HEMOGLOBIN 29.5 pg (28-32); MEAN CORPUSCULAR HGB CONC 29.9 g/dL (31-35); MEAN CORPUSCULAR VOLUME 98.6 fL (81-99); MONOCYTES # (AUTO) 0.3 (0.2-0.8); NEUTROPHILS # (AUTO) 24.2 (2.1-6.9); NEUTROPHILS % 89.9 % (38.7-80.0); PLATELET COUNT 380 x10e3/uL (140-360); RED BLOOD COUNT 2.17 x10e6/uL (3.6-5.1); RED CELL DISTRIBUTION WIDTH 17.2 % (11.7-14.4)
[2022-03-28 06:43] LABS: HEMOGLOBIN 6.4 g/dL (12.0-16.0)
[2022-03-28 06:44] LABS: HEMATOCRIT 21.4 % (34.2-44.1)
[2022-03-28 07:02] LABS: ALBUMIN/GLOBULIN RATIO 0.6 (0.8-2.0); CALCIUM 8.5 mg/dL (8.4-10.2); CREATININE, SERUM 1.54 mg/dL (0.57-1.11)
[2022-03-28] MEDS: PROPOFOL IV EMULSION 10MG/ML 100 ML IV PRN ×2 (07:25→15:19)
[2022-03-28 07:32] LABS: BAND NEUTROPHILS % (MANUAL) 9 %; MONOCYTES % (MANUAL) 8 % (3.4-9.0); NEUTROPHILS % (MANUAL) 79 % (40-74)
[2022-03-28] MEDS ORDERED: SODIUM CHLORIDE 0.9% 250ML 250 ML ONE (07:34)
[2022-03-28 07:35] LABS: PLATELET ESTIMATE ADEQUATE; PLATELET MORPHOLOGY COMMENT FEW LARGE
[2022-03-28 07:36] LABS: HYPOCHROMASIA SLIGHT; RBC MORPHOLOGY COMMENT NORMAL
[2022-03-28 07:45] LABS: HEMOGLOBIN 6.4 g/dL (12.0-16.0)
[2022-03-28 07:47] LABS: HEMATOCRIT 21.3 % (34.2-44.1)
[2022-03-28 08:09] LABS: ABG HCO3 21 mmol/L (22-26); ABG PCO2 46 mmHg (35-45); ABG PH 7.27 (7.35-7.45); ABG PO2 69 mmHg (80-105); ABG TCO2 23
[2022-03-28] MEDS ORDERED: SODIUM CHLORIDE 0.9% 250ML 250 ML IV ONE (08:15)
[2022-03-28] MEDS: METOPROLOL SUCCINATE 25 MG TAB XL PO SCH (09:00)
[2022-03-28] MEDS ORDERED: FUROSEMIDE INJ 10 MG/ML 4 ML VIAL IV ONE (10:00)
[2022-03-28] MEDS: ASCORBIC ACID 500 MG TAB NG SCH ×2 (10:16→16:59)
[2022-03-28] MEDS: CHOLECALCIFEROL 1,000 UNIT TAB NG SCH (10:16)
[2022-03-28] MEDS: AMIODARONE HCL 200 MG TAB PO SCH (10:19)
[2022-03-28] MEDS: MAGNESIUM OXIDE 400 MG TAB NG SCH ×2 (10:19→16:59)
[2022-03-28] MEDS: CYANOCOBALAMIN INJ 1,000 MCG/ML VIAL IM SCH (10:20)
[2022-03-28] MEDS: DEXAMETHASONE SOD PHOS 10 MG/1 ML VIAL IV SCH (10:20)
[2022-03-28] MEDS: MEROPENEM 1 GM in SODIUM CHLORIDE 0.9% 100 ML IV SCH ×2 (10:20→20:57)
[2022-03-28] MEDS: FUROSEMIDE INJ 100 MG in SODIUM CHLORIDE 0.9% 90 ML IV SCH (10:20)
[2022-03-28] MEDS: IRON SUCROSE 100 MG in SODIUM CHLORIDE 0.9% 100 ML IV SCH (16:54)
[2022-03-29] VITALS (85 sets, daily range): BP systolic 84–138; BP diastolic 50–80
[2022-03-29] MEDS: ALBUTEROL/IPRATROPIUM 3 ML NEB NEB SCH ×4 (00:19→19:19)
[2022-03-29] MEDS: FUROSEMIDE INJ 100 MG in SODIUM CHLORIDE 0.9% 90 ML IV SCH (01:16)
[2022-03-29] MEDS: PROPOFOL IV EMULSION 10MG/ML 100 ML IV PRN ×4 (02:59→22:10)
[2022-03-29] MEDS: NOREPINEPHRINE 8 MG/D5W 250 ML 250 ML IV PRN (03:00)
[2022-03-29 06:47] LABS: BASOPHILS % 0.1 % (0.0-1.0); HEMATOCRIT 28.7 % (34.2-44.1); HEMOGLOBIN 9.5 g/dL (12.0-16.0); LYMPHOCYTES # (AUTO) 0.6 (1.0-3.2); LYMPHOCYTES % 2.6 % (18.0-39.1); MEAN CORPUSCULAR HEMOGLOBIN 29.9 pg (28-32); MEAN CORPUSCULAR HGB CONC 33.1 g/dL (31-35); MEAN CORPUSCULAR VOLUME 90.3 fL (81-99); MONOCYTES # (AUTO) 0.6 (0.2-0.8); MONOCYTES % 2.4 % (4.4-11.3); NEUTROPHILS # (AUTO) 22.3 (2.1-6.9); NEUTROPHILS % 93.4 % (38.7-80.0); PLATELET COUNT 348 x10e3/uL (140-360); RED BLOOD COUNT 3.18 x10e6/uL (3.6-5.1); RED CELL DISTRIBUTION WIDTH 16.9 % (11.7-14.4)
[2022-03-29] MEDS: FENTANYL 2000MCG/NS 250 250 ML IV PRN ×3 (06:48→21:34)
[2022-03-29 07:30] LABS: ALBUMIN 1.9 g/dL (3.5-5.0); ALBUMIN/GLOBULIN RATIO 0.4 (0.8-2.0); ANION GAP 14.9 mmol/L (8-16); CALCIUM 9.5 mg/dL (8.4-10.2); CREATININE, SERUM 1.37 mg/dL (0.57-1.11); POTASSIUM 3.9 mmol/L (3.5-5.1)
[2022-03-29 08:11] LABS: ABG HCO3 27 mmol/L (22-26); ABG PCO2 47 mmHg (35-45); ABG PO2 83 mmHg (80-105); ABG TCO2 29
[2022-03-29 08:14] LABS: ABG PH 7.38 (7.35-7.45)
[2022-03-29] MEDS ORDERED: CITRATE OF MAGNESIA 300ML BOTTLE PO ONE (08:30)
[2022-03-29] MEDS ORDERED: BISACODYL 10 MG SUPP PR ONE (09:00)
[2022-03-29] MEDS: CHOLECALCIFEROL 1,000 UNIT TAB NG SCH (09:00)
[2022-03-29] MEDS: MIDODRINE 2.5 MG TAB PO SCH ×3 (09:19→17:13)
[2022-03-29] MEDS: FUROSEMIDE INJ 10 MG/ML 4 ML VIAL IV SCH ×2 (09:21→21:09)
[2022-03-29] MEDS: DEXAMETHASONE SOD PHOS 10 MG/1 ML VIAL IV SCH (09:21)
[2022-03-29] MEDS: MEROPENEM 1 GM in SODIUM CHLORIDE 0.9% 100 ML IV SCH ×2 (09:22→21:20)
[2022-03-29] MEDS: ASCORBIC ACID 500 MG TAB NG SCH ×2 (09:23→17:13)
[2022-03-29] MEDS: APIXAB 2.5 MG TABLET PO SCH ×2 (09:23→17:13)
[2022-03-29] MEDS: METOPROLOL TARTRATE 25 MG TAB NG SCH ×2 (09:23→21:11)
[2022-03-29] MEDS: AMIODARONE HCL 200 MG TAB PO SCH (09:24)
[2022-03-29] MEDS: CYANOCOBALAMIN INJ 1,000 MCG/ML VIAL IM SCH (09:26)
[2022-03-29 09:44] LABS: BAND NEUTROPHILS % (MANUAL) 7 %; LYMPHOCYTES % (MANUAL) 3 % (19-48); MONOCYTES % (MANUAL) 2 % (3.4-9.0); NEUTROPHILS % (MANUAL) 88 % (40-74); NUCLEATED RED BLOOD CELLS 7
[2022-03-29] MEDS: IRON SUCROSE 100 MG in SODIUM CHLORIDE 0.9% 100 ML IV SCH (11:58)
[2022-03-29 12:40] LABS: PLATELET ESTIMATE ADEQUATE; PLATELET MORPHOLOGY COMMENT NORMAL; RBC MORPHOLOGY COMMENT NORMAL
[2022-03-29] MEDS ORDERED: CHLOROTHIAZIDE SODIUM 500 MG VIAL IV ONE (13:30)
[2022-03-29] MEDS ORDERED: MIDAZOLAM HCL 2 MG/2 ML VIAL IV STA (16:28)
[2022-03-30] VITALS (43 sets, daily range): BP systolic 89–118; BP diastolic 49–68
[2022-03-30] MEDS: FENTANYL 2000MCG/NS 250 250 ML IV PRN ×3 (04:30→18:08)
[2022-03-30] MEDS: ALBUTEROL/IPRATROPIUM 3 ML NEB NEB SCH ×3 (06:30→19:02)
[2022-03-30 06:33] LABS: ABG HCO3 34 mmol/L (22-26); ABG PCO2 48 mmHg (35-45); ABG PH 7.46 (7.35-7.45); ABG PO2 57 mmHg (80-105); ABG TCO2 36
[2022-03-30 06:38] LABS: BASOPHILS # (AUTO) 0.1 (0.0-0.1); BASOPHILS % 0.2 % (0.0-1.0); HEMATOCRIT 27.1 % (34.2-44.1); HEMOGLOBIN 8.8 g/dL (12.0-16.0); LYMPHOCYTES # (AUTO) 0.9 (1.0-3.2); LYMPHOCYTES % 3.6 % (18.0-39.1); MEAN CORPUSCULAR HEMOGLOBIN 30.3 pg (28-32); MEAN CORPUSCULAR HGB CONC 32.5 g/dL (31-35); MEAN CORPUSCULAR VOLUME 93.4 fL (81-99); MONOCYTES # (AUTO) 0.9 (0.2-0.8); MONOCYTES % 3.9 % (4.4-11.3); NEUTROPHILS # (AUTO) 21.1 (2.1-6.9); NEUTROPHILS % 89.3 % (38.7-80.0); PLATELET COUNT 279 x10e3/uL (140-360)
[2022-03-30 07:12] LABS: ALBUMIN 1.5 g/dL (3.5-5.0); ALBUMIN/GLOBULIN RATIO 0.3 (0.8-2.0); ANION GAP 14.4 mmol/L (8-16); CALCIUM 8.3 mg/dL (8.4-10.2); CREATININE, SERUM 0.97 mg/dL (0.57-1.11); POTASSIUM 3.4 mmol/L (3.5-5.1)
[2022-03-30 07:39] LABS: BAND NEUTROPHILS % (MANUAL) 6 %; LYMPHOCYTES % (MANUAL) 2 % (19-48); METAMYELOCYTES % (MANUAL) 6 % (0-0); MONOCYTES % (MANUAL) 1 % (3.4-9.0); MYELOCYTES % (MANUAL) 1 % (0-0); NEUTROPHILS % (MANUAL) 84 % (40-74); NUCLEATED RED BLOOD CELLS 10; PLATELET ESTIMATE ADEQUATE; PLATELET MORPHOLOGY COMMENT NORMAL
[2022-03-30 07:40] LABS: ANISOCYTOSIS SLIGHT
[2022-03-30] MEDS: MIDODRINE 2.5 MG TAB PO SCH ×3 (08:13→18:05)
[2022-03-30] MEDS: ASCORBIC ACID 500 MG TAB NG SCH ×2 (08:14→18:00)
[2022-03-30] MEDS: APIXAB 2.5 MG TABLET PO SCH (08:14)
[2022-03-30] MEDS: AMIODARONE HCL 200 MG TAB PO SCH (08:14)
[2022-03-30] MEDS: DEXAMETHASONE SOD PHOS 10 MG/1 ML VIAL IV SCH (08:15)
[2022-03-30] MEDS: MEROPENEM 1 GM in SODIUM CHLORIDE 0.9% 100 ML IV SCH ×2 (08:17→18:00)
[2022-03-30] MEDS: PROPOFOL IV EMULSION 10MG/ML 100 ML IV PRN ×3 (08:33→22:46)
[2022-03-30] MEDS: CHOLECALCIFEROL 1,000 UNIT TAB NG SCH (08:34)
[2022-03-30] MEDS: METOPROLOL TARTRATE 25 MG TAB NG SCH ×3 (09:00→20:57)
[2022-03-30] MEDS: IRON SUCROSE 100 MG in SODIUM CHLORIDE 0.9% 100 ML IV SCH (10:54)
[2022-03-31] VITALS (87 sets, daily range): BP systolic 54–133; BP diastolic 30–78
[2022-03-31] MEDS: ALBUTEROL/IPRATROPIUM 3 ML NEB NEB SCH ×5 (00:02→19:45)
[2022-03-31] MEDS: MEROPENEM 1 GM in SODIUM CHLORIDE 0.9% 100 ML IV SCH ×3 (00:44→16:37)
[2022-03-31] MEDS ORDERED: VECURONIUM BROMIDE FOR INJ 20 MG VIAL IV STA (03:50)
[2022-03-31] MEDS ORDERED: VECURONIUM BROMIDE FOR INJ 20 MG VIAL ONE (04:05)
[2022-03-31 04:20] LABS: ABG PCO2 44 mmHg (35-45); ABG PH 7.45 (7.35-7.45)
[2022-03-31 04:22] LABS: ABG HCO3 31 mmol/L (22-26); ABG PO2 30 mmHg (80-105); ABG TCO2 32
[2022-03-31] MEDS ORDERED: ACETAMINOPHEN 1000 MG/100 ML 100 ML IV ONE (04:27)
[2022-03-31] MEDS ORDERED: ROCURONIUM 1250MG/NS 250 250 ML ONE (04:27)
[2022-03-31] MEDS ORDERED: ACETAMINOPHEN 1000 MG/100 ML IV STA (04:34)
[2022-03-31] MEDS: PROPOFOL IV EMULSION 10MG/ML 100 ML IV PRN (04:39)
[2022-03-31] MEDS ORDERED: MIDAZOLAM HCL 2 MG/2 ML VIAL IV ONE (06:30)
[2022-03-31] MEDS ORDERED: MIDAZOLAM HCL 2 MG/2 ML VIAL ONE (06:36)
[2022-03-31] MEDS ORDERED: MIDAZOLAM HCL 5MG/ML 10ML VIAL 100 ML IV ONE (06:37)
[2022-03-31] MEDS ORDERED: AMIODARONE HCL 100 ML IV ONE ×2 (06:45→06:46)
[2022-03-31] MEDS ORDERED: AMIODARONE 900MG 500 ML IV SCH (06:45)
[2022-03-31 06:46] LABS: BASOPHILS # (AUTO) 0.1 (0.0-0.1); BASOPHILS % 0.3 % (0.0-1.0); EOSINOPHILS % 0.1 % (0.0-6.0); HEMOGLOBIN 9.8 g/dL (12.0-16.0); LYMPHOCYTES # (AUTO) 1.1 (1.0-3.2); LYMPHOCYTES % 5.5 % (18.0-39.1); MEAN CORPUSCULAR HEMOGLOBIN 31.8 pg (28-32); MEAN CORPUSCULAR HGB CONC 32.7 g/dL (31-35); MEAN CORPUSCULAR VOLUME 97.4 fL (81-99); MONOCYTES # (AUTO) 0.4 (0.2-0.8); NEUTROPHILS # (AUTO) 17.2 (2.1-6.9); NEUTROPHILS % 85.3 % (38.7-80.0); PLATELET COUNT 267 x10e3/uL (140-360); RED BLOOD COUNT 3.08 x10e6/uL (3.6-5.1); RED CELL DISTRIBUTION WIDTH 17.2 % (11.7-14.4)
[2022-03-31] MEDS ORDERED: AMIODARONE 900MG 500 ML IV ONE (06:46)
[2022-03-31 07:11] LABS: ALBUMIN 1.5 g/dL (3.5-5.0); ALBUMIN/GLOBULIN RATIO 0.3 (0.8-2.0); ANION GAP 15.4 mmol/L (8-16); CALCIUM 7.8 mg/dL (8.4-10.2); CREATININE, SERUM 0.89 mg/dL (0.57-1.11); POTASSIUM 3.4 mmol/L (3.5-5.1)
[2022-03-31] MEDS ORDERED: Vancomycin IV 1 GM in SODIUM CHLORIDE 0.9% 250ML 250 ML IV ONE (08:30)
[2022-03-31] MEDS ORDERED: LACTATED RINGER'S 500 ML INJ ONE (08:30)
[2022-03-31] MEDS: ASCORBIC ACID 500 MG TAB NG SCH ×2 (09:02→16:36)
[2022-03-31] MEDS: APIXAB 2.5 MG TABLET PO SCH ×2 (09:02→16:37)
[2022-03-31] MEDS: CHOLECALCIFEROL 1,000 UNIT TAB NG SCH (09:02)
[2022-03-31] MEDS: METOPROLOL TARTRATE 25 MG TAB NG SCH ×2 (09:03→20:31)
[2022-03-31] MEDS: MIDODRINE 2.5 MG TAB PO SCH (09:04)
[2022-03-31] MEDS: FLUCONAZOLE 200 MG/100 ML 100 ML IV SCH (09:04)
[2022-03-31 09:08] LABS: BAND NEUTROPHILS % (MANUAL) 12 %; EOSINOPHILS % (MANUAL) 1 % (0-7); LYMPHOCYTES % (MANUAL) 6 % (19-48); METAMYELOCYTES % (MANUAL) 9 % (0-0); MONOCYTES % (MANUAL) 1 % (3.4-9.0); MYELOCYTES % (MANUAL) 5 % (0-0); NEUTROPHILS % (MANUAL) 66 % (40-74); NUCLEATED RED BLOOD CELLS 7; PLATELET MORPHOLOGY COMMENT NORMAL
[2022-03-31 09:09] LABS: PLATELET ESTIMATE ADEQUATE
[2022-03-31] MEDS: POTASSIUM CHLORIDE 20MEQ/100ML 100 ML IV SCH ×2 (09:23→09:24)
[2022-03-31 09:44] LABS: ABG PCO2 56 mmHg (35-45); ABG PH 7.35 (7.35-7.45)
[2022-03-31 09:45] LABS: ABG HCO3 31 mmol/L (22-26); ABG PO2 56 mmHg (80-105); ABG TCO2 32
[2022-03-31] MEDS: FENTANYL 2000MCG/NS 250 250 ML IV PRN ×3 (09:53→23:42)
[2022-03-31] MEDS: NOREPINEPHRINE 8 MG/D5W 250 ML 250 ML IV PRN ×2 (11:00→17:15)
[2022-03-31] MEDS: MIDAZOLAM HCL 5MG/ML 10ML VIAL 100 ML IV PRN ×3 (11:26→21:24)
[2022-03-31] MEDS ORDERED: POTASSIUM CHLORIDE 20MEQ/100ML 200 ML IV ONE (11:30)
[2022-03-31] MEDS: MIDODRINE HCL 5 MG TABLET PO SCH ×2 (11:51→16:37)
[2022-03-31] MEDS ORDERED: ACETAMINOPHEN 1000 MG/100 ML IV ONE (12:00)
[2022-03-31] MEDS ORDERED: FUROSEMIDE INJ 10 MG/ML 4 ML VIAL IV ONE (12:00)
[2022-04-01] VITALS (95 sets, daily range): BP systolic 60–141; BP diastolic 24–81
[2022-04-01] MEDS: MEROPENEM 1 GM in SODIUM CHLORIDE 0.9% 100 ML IV SCH ×3 (00:37→16:18)
[2022-04-01] MEDS: NOREPINEPHRINE 8 MG/D5W 250 ML 250 ML IV PRN ×3 (01:25→19:44)
[2022-04-01] MEDS: MIDAZOLAM HCL 5MG/ML 10ML VIAL 100 ML IV PRN ×5 (01:26→22:46)
[2022-04-01] MEDS: ALBUTEROL/IPRATROPIUM 3 ML NEB NEB SCH ×4 (04:10→19:20)
[2022-04-01] MEDS: FENTANYL 2000MCG/NS 250 250 ML IV PRN ×3 (06:47→19:46)
[2022-04-01 07:01] LABS: BASOPHILS % 0.1 % (0.0-1.0); EOSINOPHILS # (AUTO) 0.1 (0.0-0.4); EOSINOPHILS % 0.4 % (0.0-6.0); HEMATOCRIT 30.7 % (34.2-44.1); HEMOGLOBIN 9.3 g/dL (12.0-16.0); LYMPHOCYTES % 3.2 % (18.0-39.1); MEAN CORPUSCULAR HEMOGLOBIN 29.5 pg (28-32); MEAN CORPUSCULAR HGB CONC 30.3 g/dL (31-35); MEAN CORPUSCULAR VOLUME 97.5 fL (81-99); MONOCYTES # (AUTO) 0.3 (0.2-0.8); NEUTROPHILS # (AUTO) 28.1 (2.1-6.9); NEUTROPHILS % 91.4 % (38.7-80.0); PLATELET COUNT 262 x10e3/uL (140-360); RED BLOOD COUNT 3.15 x10e6/uL (3.6-5.1); RED CELL DISTRIBUTION WIDTH 17.5 % (11.7-14.4)
[2022-04-01 07:19] LABS: ALBUMIN 1.3 g/dL (3.5-5.0); ALBUMIN/GLOBULIN RATIO 0.3 (0.8-2.0); CALCIUM 8.2 mg/dL (8.4-10.2); CREATININE, SERUM 1.05 mg/dL (0.57-1.11)
[2022-04-01 07:55] LABS: ABG PH 7.35 (7.35-7.45)
[2022-04-01] MEDS: ASCORBIC ACID 500 MG TAB NG SCH ×2 (07:55→16:18)
[2022-04-01] MEDS: APIXAB 2.5 MG TABLET PO SCH ×2 (07:55→16:19)
[2022-04-01] MEDS: METOPROLOL TARTRATE 25 MG TAB NG SCH ×2 (07:55→21:45)
[2022-04-01 07:56] LABS: ABG HCO3 26 mmol/L (22-26); ABG PCO2 48 mmHg (35-45); ABG PO2 70 mmHg (80-105); ABG TCO2 28
[2022-04-01] MEDS: CHOLECALCIFEROL 1,000 UNIT TAB NG SCH (07:56)
[2022-04-01] MEDS: MIDODRINE HCL 5 MG TABLET PO SCH ×3 (07:56→16:18)
[2022-04-01] MEDS: FLUCONAZOLE 200 MG/100 ML 100 ML IV SCH (07:56)
[2022-04-01 08:43] LABS: BAND NEUTROPHILS % (MANUAL) 5 %; LYMPHOCYTES % (MANUAL) 5 % (19-48); MONOCYTES % (MANUAL) 1 % (3.4-9.0); MYELOCYTES % (MANUAL) 1 % (0-0); NEUTROPHILS % (MANUAL) 88 % (40-74); NUCLEATED RED BLOOD CELLS 1; PLATELET ESTIMATE ADEQUATE; PLATELET MORPHOLOGY COMMENT NORMAL; RBC MORPHOLOGY COMMENT NORMAL
[2022-04-01] MEDS: ROCURONIUM 1250MG/NS 250 250 ML IV PRN (12:16)
[2022-04-01] MEDS ORDERED: BUMETANIDE INJ 0.25MG/ML 4ML VIAL IV ONE (15:15)
[2022-04-01] MEDS ORDERED: SODIUM CHLORIDE 0.9% 500ML 500 ML IV ONE (15:45)
[2022-04-01] MEDS ORDERED: ALBUMIN 25% 25GM 100ML 0.25 GM/ML BTL IV ONE (17:15)
[2022-04-01] MEDS ORDERED: ALBUMIN 25% 25GM 100ML 100 ML IV ONE (17:30)
[2022-04-02] VITALS (71 sets, daily range): BP systolic 54–132; BP diastolic 20–75
[2022-04-02] MEDS: MEROPENEM 1 GM in SODIUM CHLORIDE 0.9% 100 ML IV SCH ×3 (00:14→18:13)
[2022-04-02] MEDS: ALBUTEROL/IPRATROPIUM 3 ML NEB NEB SCH ×4 (02:50→19:45)
[2022-04-02] MEDS: MIDAZOLAM HCL 5MG/ML 10ML VIAL 100 ML IV PRN ×3 (03:16→20:30)
[2022-04-02] MEDS: FENTANYL 2000MCG/NS 250 250 ML IV PRN ×2 (03:27→19:10)
[2022-04-02 06:38] LABS: BASOPHILS # (AUTO) 0.2 (0.0-0.1); BASOPHILS % 0.6 % (0.0-1.0); EOSINOPHILS # (AUTO) 0.1 (0.0-0.4); EOSINOPHILS % 0.4 % (0.0-6.0); HEMATOCRIT 30.8 % (34.2-44.1); HEMOGLOBIN 9.2 g/dL (12.0-16.0); LYMPHOCYTES # (AUTO) 0.7 (1.0-3.2); LYMPHOCYTES % 2.3 % (18.0-39.1); MEAN CORPUSCULAR HEMOGLOBIN 29.6 pg (28-32); MEAN CORPUSCULAR HGB CONC 29.9 g/dL (31-35); MONOCYTES # (AUTO) 0.2 (0.2-0.8); MONOCYTES % 0.6 % (4.4-11.3); NEUTROPHILS # (AUTO) 28.6 (2.1-6.9); NEUTROPHILS % 94.3 % (38.7-80.0); PLATELET COUNT 203 x10e3/uL (140-360); RED BLOOD COUNT 3.11 x10e6/uL (3.6-5.1); RED CELL DISTRIBUTION WIDTH 17.9 % (11.7-14.4)
[2022-04-02] MEDS: NOREPINEPHRINE 8 MG/D5W 250 ML 250 ML IV PRN ×2 (06:38→21:40)
[2022-04-02 07:00] LABS: ALBUMIN 1.4 g/dL (3.5-5.0); ALBUMIN/GLOBULIN RATIO 0.3 (0.8-2.0); ANION GAP 18.6 mmol/L (8-16); CALCIUM 8.2 mg/dL (8.4-10.2); CREATININE, SERUM 1.35 mg/dL (0.57-1.11); POTASSIUM 4.6 mmol/L (3.5-5.1)
[2022-04-02 08:16] LABS: BAND NEUTROPHILS % (MANUAL) 4 %; LYMPHOCYTES % (MANUAL) 2 % (19-48); METAMYELOCYTES % (MANUAL) 2 % (0-0); MYELOCYTES % (MANUAL) 1 % (0-0); NEUTROPHILS % (MANUAL) 91 % (40-74); NUCLEATED RED BLOOD CELLS 1; PLATELET ESTIMATE ADEQUATE; PLATELET MORPHOLOGY COMMENT FEW LARGE; TOXIC GRANULATION MODERATE; VACUOLE,WBC SLIGHT
[2022-04-02 08:16] LABS: ABG HCO3 24 mmol/L (22-26); ABG PCO2 60 mmHg (35-45); ABG PH 7.22 (7.35-7.45); ABG PO2 54 mmHg (80-105); ABG TCO2 26
[2022-04-02 08:17] LABS: ANISOCYTOSIS SLIGHT; HYPOCHROMASIA SLIGHT; RBC MORPHOLOGY COMMENT NORMAL
[2022-04-02] MEDS: MIDODRINE HCL 5 MG TABLET PO SCH ×3 (08:58→18:13)
[2022-04-02] MEDS: CHOLECALCIFEROL 1,000 UNIT TAB NG SCH (08:59)
[2022-04-02] MEDS: FLUCONAZOLE 200 MG/100 ML 100 ML IV SCH (08:59)
[2022-04-02] MEDS: METOPROLOL TARTRATE 25 MG TAB NG SCH ×2 (08:59→21:00)
[2022-04-02] MEDS: ASCORBIC ACID 500 MG TAB NG SCH ×2 (08:59→18:13)
[2022-04-02] MEDS: APIXAB 2.5 MG TABLET PO SCH ×2 (08:59→18:13)
[2022-04-02] MEDS ORDERED: DIATRIZOATE MEGL/DIATRIZOA SOD 30 ML BTL PO ONE (14:03)
[2022-04-02] MEDS ORDERED: ACETAMINOPHEN 1000 MG/100 ML IV PRN (21:15)
[2022-04-02] MEDS: ROCURONIUM 1250MG/NS 250 250 ML IV PRN (21:36)
[2022-04-02] MEDS: VASOPRESSIN 60 UNIT in DEXTROSE 5% 50ML 57 ML IV PRN (21:50)
[2022-04-02] MEDS ORDERED: SODIUM BICARBONATE 8.4% INJ 50 ML SYR IV STA (22:11)
[2022-04-02] MEDS ORDERED: SODIUM BICARBONATE 8.4% 150 ML in DEXTROSE 5% 1,000 ML IV ONE (22:15)
[2022-04-02] MEDS ORDERED: DEXTROSE 5% 1,000 ML IV ONE (22:36)
[2022-04-02] MEDS ORDERED: SODIUM BICARBONATE 8.4% SYRING 150 ML ONE (22:36)
[2022-04-02] MEDS ORDERED: SODIUM BICARBONATE 8.4% SYRING 50 ML ONE (23:02)
[2022-04-03] VITALS (85 sets, daily range): BP systolic 67–126; BP diastolic 47–84
[2022-04-03] MEDS: MEROPENEM 1 GM in SODIUM CHLORIDE 0.9% 100 ML IV SCH ×3 (02:00→18:05)
[2022-04-03] MEDS: FENTANYL 2000MCG/NS 250 250 ML IV PRN ×3 (02:11→23:57)
[2022-04-03] MEDS: MIDAZOLAM HCL 5MG/ML 10ML VIAL 100 ML IV PRN ×4 (02:12→23:58)
[2022-04-03] MEDS: NOREPINEPHRINE 8 MG/D5W 250 ML 250 ML IV PRN ×5 (03:00→19:44)
[2022-04-03] MEDS: ALBUTEROL/IPRATROPIUM 3 ML NEB NEB SCH ×4 (03:40→19:20)
[2022-04-03 06:44] LABS: BASOPHILS % 0.1 % (0.0-1.0); EOSINOPHILS # (AUTO) 0.1 (0.0-0.4); EOSINOPHILS % 0.5 % (0.0-6.0); HEMATOCRIT 30.6 % (34.2-44.1); HEMOGLOBIN 9.5 g/dL (12.0-16.0); LYMPHOCYTES # (AUTO) 0.6 (1.0-3.2); MEAN CORPUSCULAR HEMOGLOBIN 29.6 pg (28-32); MEAN CORPUSCULAR VOLUME 95.3 fL (81-99); MONOCYTES # (AUTO) 0.2 (0.2-0.8); MONOCYTES % 1.1 % (4.4-11.3); NEUTROPHILS # (AUTO) 20.2 (2.1-6.9); NEUTROPHILS % 93.9 % (38.7-80.0); PLATELET COUNT 141 x10e3/uL (140-360); RED BLOOD COUNT 3.21 x10e6/uL (3.6-5.1); RED CELL DISTRIBUTION WIDTH 18.1 % (11.7-14.4)
[2022-04-03 07:05] LABS: ALBUMIN/GLOBULIN RATIO 0.2 (0.8-2.0); ANION GAP 18.9 mmol/L (8-16); CALCIUM 7.5 mg/dL (8.4-10.2); CREATININE, SERUM 1.48 mg/dL (0.57-1.11); POTASSIUM 4.9 mmol/L (3.5-5.1)
[2022-04-03] MEDS ORDERED: FUROSEMIDE INJ 10 MG/ML 4 ML VIAL IV ONE (08:40)
[2022-04-03] MEDS: ASCORBIC ACID 500 MG TAB NG SCH ×2 (08:51→17:00)
[2022-04-03] MEDS: FLUCONAZOLE 200 MG/100 ML 100 ML IV SCH (08:51)
[2022-04-03] MEDS: MIDODRINE HCL 5 MG TABLET PO SCH ×3 (08:51→16:00)
[2022-04-03] MEDS: CHOLECALCIFEROL 1,000 UNIT TAB NG SCH (08:51)
[2022-04-03] MEDS: APIXAB 2.5 MG TABLET PO SCH ×2 (08:51→17:00)
[2022-04-03] MEDS: METOPROLOL TARTRATE 25 MG TAB NG SCH ×2 (08:52→21:00)
[2022-04-03 09:02] LABS: ABG HCO3 23 mmol/L (22-26); ABG PCO2 60 mmHg (35-45); ABG PH 7.19 (7.35-7.45); ABG PO2 62 mmHg (80-105)
[2022-04-03 09:03] LABS: ABG TCO2 25
[2022-04-03] MEDS ORDERED: SODIUM BICARBONATE 8.4% SYRING 150 ML in DEXTROSE 5% 1,000 ML IV SCH (09:30)
[2022-04-03 11:06] LABS: BAND NEUTROPHILS % (MANUAL) 4 %; EOSINOPHILS % (MANUAL) 1 % (0-7); LYMPHOCYTES % (MANUAL) 2 % (19-48); METAMYELOCYTES % (MANUAL) 2 % (0-0); MYELOCYTES % (MANUAL) 1 % (0-0); NEUTROPHILS % (MANUAL) 90 % (40-74); NUCLEATED RED BLOOD CELLS 24; PLATELET ESTIMATE SLIGHTLY DECREASED; PLATELET MORPHOLOGY COMMENT NORMAL; RBC MORPHOLOGY COMMENT NORMAL
[2022-04-03] MEDS: VANCOMYCIN 250MG/5ML ORAL SOLN NG SCH ×2 (11:51→18:00)
[2022-04-03] MEDS ORDERED: VANCOMYCIN HCL 125 MG CAPSULE NG SCH (12:00)
[2022-04-03] MEDS: SODIUM BICARBONATE 8.4% 150 ML in DEXTROSE 5% 1,000 ML IV SCH (18:08)
[2022-04-03] MEDS ORDERED: FUROSEMIDE INJ 100 MG in SODIUM CHLORIDE 0.9% 90 ML IV SCH (19:15)
[2022-04-03] MEDS: VASOPRESSIN 60 UNIT in DEXTROSE 5% 50ML 57 ML IV PRN (23:15)
[2022-04-04] VITALS (59 sets, daily range): BP systolic 68–142; BP diastolic 51–89
[2022-04-04] MEDS: ALBUTEROL/IPRATROPIUM 3 ML NEB NEB SCH ×4 (00:10→19:37)
[2022-04-04] MEDS: MEROPENEM 1 GM in SODIUM CHLORIDE 0.9% 100 ML IV SCH ×3 (00:44→19:23)
[2022-04-04] MEDS: NOREPINEPHRINE 8 MG/D5W 250 ML 250 ML IV PRN ×3 (01:45→22:25)
[2022-04-04] MEDS: ROCURONIUM 1250MG/NS 250 250 ML IV PRN (01:49)
[2022-04-04] MEDS ORDERED: EPINEPHRINE 2.25% INH NEBU SOL 0.5 ML VIAL ONE (02:36)
[2022-04-04] MEDS: SODIUM BICARBONATE 8.4% 150 ML in DEXTROSE 5% 1,000 ML IV SCH (03:42)
[2022-04-04] MEDS: VANCOMYCIN 250MG/5ML ORAL SOLN NG SCH ×4 (05:02→18:00)
[2022-04-04] MEDS: MIDAZOLAM HCL 5MG/ML 10ML VIAL 100 ML IV PRN ×3 (05:35→21:10)
[2022-04-04 07:04] LABS: BASOPHILS % 0.4 % (0.0-1.0); EOSINOPHILS # (AUTO) 0.1 (0.0-0.4); EOSINOPHILS % 0.7 % (0.0-6.0); HEMATOCRIT 22.4 % (34.2-44.1); LYMPHOCYTES # (AUTO) 0.2 (1.0-3.2); LYMPHOCYTES % 1.6 % (18.0-39.1); MEAN CORPUSCULAR HEMOGLOBIN 29.4 pg (28-32); MEAN CORPUSCULAR HGB CONC 32.1 g/dL (31-35); MONOCYTES # (AUTO) 0.2 (0.2-0.8); MONOCYTES % 1.4 % (4.4-11.3); NEUTROPHILS # (AUTO) 10.3 (2.1-6.9); RED BLOOD COUNT 2.45 x10e6/uL (3.6-5.1); RED CELL DISTRIBUTION WIDTH 17.5 % (11.7-14.4)
[2022-04-04 07:05] LABS: MEAN CORPUSCULAR VOLUME 91.4 fL (81-99)
[2022-04-04 07:09] LABS: HEMOGLOBIN 7.2 g/dL (12.0-16.0); PLATELET COUNT 52 x10e3/uL (140-360)
[2022-04-04] MEDS: FENTANYL 2000MCG/NS 250 250 ML IV PRN ×2 (07:09→21:27)
[2022-04-04 07:12] LABS: ABG PCO2 48 mmHg (35-45); ABG PH 7.35 (7.35-7.45); ABG PO2 51 mmHg (80-105)
[2022-04-04 07:13] LABS: ABG HCO3 27 mmol/L (22-26); ABG TCO2 28
[2022-04-04 07:22] LABS: ALBUMIN 0.8 g/dL (3.5-5.0); ALBUMIN/GLOBULIN RATIO 0.3 (0.8-2.0); ANION GAP 17.5 mmol/L (8-16); CREATININE, SERUM 1.1 mg/dL (0.57-1.11)
[2022-04-04 07:26] LABS: CALCIUM 6.1 mg/dL (8.4-10.2); POTASSIUM 3.5 mmol/L (3.5-5.1)
[2022-04-04 07:55] LABS: BAND NEUTROPHILS % (MANUAL) 3 %; EOSINOPHILS % (MANUAL) 1 % (0-7); LYMPHOCYTES % (MANUAL) 1 % (19-48); MONOCYTES % (MANUAL) 1 % (3.4-9.0); NEUTROPHILS % (MANUAL) 94 % (40-74); NUCLEATED RED BLOOD CELLS 23
[2022-04-04 07:57] LABS: ANISOCYTOSIS MODERATE; HYPOCHROMASIA SLIGHT; PLATELET ESTIMATE MARKEDLY DECREASED; PLATELET MORPHOLOGY COMMENT FEW LARGE; RBC MORPHOLOGY COMMENT ABNORMAL; TARGET CELLS FEW; TOXIC GRANULATION MODERATE
[2022-04-04 07:58] LABS: POIKILOCYTOSIS SLIGHT
[2022-04-04] MEDS: MIDODRINE HCL 5 MG TABLET PO SCH (08:00)
[2022-04-04] MEDS: METOPROLOL TARTRATE 25 MG TAB NG SCH ×2 (08:07→21:00)
[2022-04-04] MEDS: APIXAB 2.5 MG TABLET PO SCH (08:08)
[2022-04-04] MEDS: ASCORBIC ACID 500 MG TAB NG SCH ×2 (08:10→17:00)
[2022-04-04] MEDS: CHOLECALCIFEROL 1,000 UNIT TAB NG SCH (08:10)
[2022-04-04] MEDS ORDERED: DEXTROSE 50% SYRINGE 50 ML IV ONE ×2 (08:46→23:38)
[2022-04-04] MEDS: FLUCONAZOLE 200 MG/100 ML 100 ML IV SCH (08:56)
[2022-04-04] MEDS: FUROSEMIDE INJ 100 MG in SODIUM CHLORIDE 0.9% 90 ML IV SCH (15:14)
[2022-04-04] MEDS ORDERED: SODIUM BICARBONATE 8.4% INJ 50 ML SYR IV STA (21:31)
[2022-04-04] MEDS: PHENYLEPHRINE HCL IN 0.9% NACL 250 ML IV SCH (22:16)
[2022-04-04] MEDS: DEXTROSE 50% SYRINGE 50 ML IV PRN ×2 (23:15→23:45)
[2022-04-05] VITALS: BP 80/61
[2022-04-05 01:00] VITALS: BP 70/56
[2022-04-05] MEDS: FUROSEMIDE INJ 100 MG in SODIUM CHLORIDE 0.9% 90 ML IV SCH (01:54)
[2022-04-05] MEDS: SODIUM BICARBONATE 8.4% 150 ML in DEXTROSE 5% 1,000 ML IV SCH (01:56)
[2022-04-05 02:00] VITALS: BP 66/62
[2022-04-05] MEDS: MEROPENEM 1 GM in SODIUM CHLORIDE 0.9% 100 ML IV SCH (02:11)
[2022-04-05] MEDS: ALBUTEROL/IPRATROPIUM 3 ML NEB NEB SCH (02:20)
[2022-04-05] MEDS: MIDAZOLAM HCL 5MG/ML 10ML VIAL 100 ML IV PRN ×2 (02:38→07:44)
[2022-04-05] MEDS: NOREPINEPHRINE 8 MG/D5W 250 ML 250 ML IV PRN ×2 (02:39→06:47)
[2022-04-05] MEDS: PHENYLEPHRINE HCL IN 0.9% NACL 250 ML IV SCH ×3 (02:56→09:37)
[2022-04-05 03:00] VITALS: BP 60/57
[2022-04-05] MEDS: FENTANYL 2000MCG/NS 250 250 ML IV PRN (04:50)
[2022-04-05] MEDS: ROCURONIUM 1250MG/NS 250 250 ML IV PRN (05:31)
[2022-04-05] MEDS: VANCOMYCIN 250MG/5ML ORAL SOLN NG SCH ×2 (06:00)
[2022-04-05] MEDS: METOPROLOL TARTRATE 25 MG TAB NG SCH (08:31)
[2022-04-05] MEDS: CHOLECALCIFEROL 1,000 UNIT TAB NG SCH (08:32)
[2022-04-05] MEDS: ASCORBIC ACID 500 MG TAB NG SCH (08:32)
[2022-04-05] MEDS: FLUCONAZOLE 200 MG/100 ML 100 ML IV SCH (08:41)
[2022-04-05 09:00] VITALS: BP 0/0
== END 2022-04-05 10:01 | disposition expired | DRG 870 ==
LOC: ICU 11:58
PROVIDERS: ADMIT Internal Medicine; ATTEND Internal Medicine
PROC: 02HV33Z Insertion of Infusion Device into Superior Vena Cava, Percutaneous Approach (ICD-10-PCS; 2022-03-16)
PROC: 5A0955A Assistance with Respiratory Ventilation, Greater than 96 Consecutive Hours, High Flow/Velocity Cannula (ICD-10-PCS; 2022-03-17)
PROC: 3E04329 Introduction of Other Anti-infective into Central Vein, Percutaneous Approach (ICD-10-PCS; 2022-03-21)
PROC: 3E043XZ Introduction of Vasopressor into Central Vein, Percutaneous Approach (ICD-10-PCS; 2022-03-22)
PROC: 02HV33Z Insertion of Infusion Device into Superior Vena Cava, Percutaneous Approach (ICD-10-PCS; principal; 2022-03-25)
PROC: 0BH18EZ Insertion of Endotracheal Airway into Trachea, Via Natural or Artificial Opening Endoscopic (ICD-10-PCS; 2022-03-25)
PROC: 5A1955Z Respiratory Ventilation, Greater than 96 Consecutive Hours (ICD-10-PCS; 2022-03-25)
PROC: 30243N1 Transfusion of Nonautologous Red Blood Cells into Central Vein, Percutaneous Approach (ICD-10-PCS; 2022-03-28)
PROC: 02HV33Z Insertion of Infusion Device into Superior Vena Cava, Percutaneous Approach (ICD-10-PCS; 2022-03-31)
DX: A41.9 Sepsis, unspecified organism (principal); U07.1 COVID-19; I26.93 Single subsegmental thrombotic pulmonary embolism without acute cor pulmonale; J12.82 Pneumonia due to coronavirus disease 2019; J69.0 Pneumonitis due to inhalation of food and vomit; J80 Acute respiratory distress syndrome; R65.21 Severe sepsis with septic shock; N17.0 Acute kidney failure with tubular necrosis; K72.00 Acute and subacute hepatic failure without coma; J15.1 Pneumonia due to Pseudomonas; D84.821 Immunodeficiency due to drugs; J44.0 Chronic obstructive pulmonary disease with (acute) lower respiratory infection; E87.0 Hyperosmolality and hypernatremia; J44.1 Chronic obstructive pulmonary disease with (acute) exacerbation; F32.A Depression, unspecified; Z96.649 Presence of unspecified artificial hip joint; M06.9 Rheumatoid arthritis, unspecified; G62.9 Polyneuropathy, unspecified; Z79.899 Other long term (current) drug therapy; L40.9 Psoriasis, unspecified; I10 Essential (primary) hypertension; G89.4 Chronic pain syndrome; R31.9 Hematuria, unspecified; M79.7 Fibromyalgia; E55.9 Vitamin D deficiency, unspecified; I48.0 Paroxysmal atrial fibrillation; Z79.01 Long term (current) use of anticoagulants; R57.1 Hypovolemic shock; E66.9 Obesity, unspecified; Z68.31 Body mass index [BMI] 31.0-31.9, adult; Z51.5 Encounter for palliative care; D75.839 Thrombocytosis, unspecified; E87.6 Hypokalemia; D63.8 Anemia in other chronic diseases classified elsewhere; I70.0 Atherosclerosis of aorta
CPT/HCPCS: 36415; 36569; 36600; 71045; 74018; 80048; 80053; 80202; 81001; 81015; 82728; 82805; 82948; 83540; 83735; 84466; 85014; 85018; 85025; 85610; 85730; 86022; 86140; 86850; 86900; 86920; 87070; 87086; 87186; 87205; 93005; 93306; 94002; 94003; 94640; 94660; 94664; 94799; 99251; J0330; J0456; J0696; J1100; J1450; J1756; J1940; J2185; J2250; J2270; J2543; J2920; J2997; J3370; J3420; J3475; J3480; J7030; J7040; J7050; J7070; J7121; J7799; P9016; P9047; Q9963